=== PATIENT | male | born 1930 | race Two or more races ===

== ENCOUNTER → 2016-10-08 | Outpatient (CLI) | payer MEDICARE, MEDICAID ==
[~2016-10-08] MED LIST: ASPI325T32 PO; BACL10TA PO; FINA5TAB4 PO; GABA300C16 PO; HYDR-906 PO; LOVA20TA PO; MULT1TAB10 PO; OXYC-279 PO; PANT40TA4 PO; PROM6.2514 PO; ROPI0.5T2 PO; TAMS0.4C2 PO; ULT50 PO
== END | disposition home or self-care (01) ==
LOC: HKI 10:08
PROVIDERS: ATTEND Orthopaedic Surgery
DX: Z01.818 Encounter for other preprocedural examination (principal); M25.551 Pain in right hip
CPT/HCPCS: 87081; G0463

== ENCOUNTER 2016-10-14 05:37 | Inpatient (IN) | payer MEDICARE, OTHER ==
--- NOTE | 2016-10-10 07:30 | PREOPHP ---
DATE OF ADMISSION: 10/14/2016 SURGERY TO BE PERFORMED: Right hip replacement. INDICATION: Stress fracture of the right hip and severe pain, not resolving with conservative measu res, pain medications, physical therapy, anti-inflammatories, muscle relaxers, etc. This is an 86-year-old white male who is being brought to the hospital for the purpose of right hip replacement. He has been suffering severe pain in the right hip for the past 6 months and he failed conservative measures. PAST MEDICAL HISTORY: The patient has a history of hyperlipidemia, gastroesophageal reflux disease, colonic polyps, prostatic hyperplasia, osteoarthritis and peripheral neuropathy. SOCIAL HISTORY: Nonsmoker, nondrinker. FAMILY HISTORY: Negative for any hereditary or familial disorders. REVIEW OF SYSTEMS: Patient denies syncope, denies amaurosis, no chest pain, no angina pectoris, no dyspnea, no hemoptysis, no sputum production. No hematochezia or melena. He has frequent urination and some hesitancy due to prostatic hyperplasia. He has osteoarthritic pain in the knees and hips and lumbar spine. PHYSICAL EXAMINATION: GENERAL: Reveals an elderly gentleman appearing younger than his stated age. He is 5 feet 6 inche s in height, he weighs 195 pounds with indoor clothing. VITAL SIGNS: Blood pressure was 150/70, pulse was 65 per minute and regular. Oxygen saturation wa s 96% on room air. HEAD AND NECK: Reveals throat and ears to be clear. No evidence of acute pharyngeal infection or i nflammation. Neck is supple. There was no audible carotid bruit, no lymphadenopathy. CHEST: Reveals chest to be symmetrical. Heart sounds are audible and normal. No murmurs, no rhodes ps, no rubs are noted. LUNGS: Clear to auscultation and percussion at inspiration and expiration bilaterally. ABDOMEN: Soft, somewhat protuberant, but no ascites. No hepatomegaly, no splenomegaly, no masses __ ___ or palpable. GENITOURINARY: The patient had normal male genitalia and there is some inguinal area bilaterally d ermatitis, fungal in nature described as tinea cruris. EXTREMITIES: Revealed no evidence of deep or superficial venous thrombosis. Distal pulses are 3 to 4+ bilaterally. Homans signs are negative. No calf edema or tenderness. EKG done in the office revealed rhythm to be regular, rate of 54 per minute, axis +3, no ST se gment deviation, no T-wave depression. Chest x-ray PA and lateral done in the office reveals evidence of degenerative thoracic spine disea se, but no acute infiltrate in either of the lung rowe. No cardiomegaly. Mediastinal size was no t enlarged. ASSESSMENT: 1. Stress fracture of the right hip. 2. Osteoarthritis. 3. Prostatic hyperplasia. 4. Peripheral neuropathy. 5. Hyperlipidemia, all stable on medical treatment. PLAN: The patient is medically clear to undergo hip replacement under general anesthesia. I will b e available perioperatively for any inquiries. My cellular phone is [phone], my e-mail is [email or web address]. Dictated By: BELLA JAMES/SHANNAN Conf#: [id number] DID#: [id number]
[2016-10-13 09:20] VITALS: Ht 165.1 cm; Wt 87.4 kg
[2016-10-14] VITALS (25 sets, daily range): BP systolic 99–158; BP diastolic 49–82; PULSE 60–74; RESP 7–20
[~2016-10-14] VITALS: Ht 165.1 cm; Wt 87.4 kg
[2016-10-14] MEDS ORDERED: oxyCODONE (CR) 10 MG TAB [oxyCONTIN] X1 DOSE PO ONE (06:00)
[2016-10-14] MEDS ORDERED: PREGABALIN 300 MG PO X1 PO ONE (06:00)
[2016-10-14] MEDS ORDERED: SOD CHLORIDE 0.9% IV ONE (06:00)
[2016-10-14] MEDS ORDERED: CELECOXIB 400 MG PO X1 DOSE PO ONE (06:00)
[2016-10-14] MEDS ORDERED: CEFAZOLIN 2GM/50 ML (PMX) 50 ML X1 BEFORE INCISION IVPB ONE (06:00)
[2016-10-14] MEDS ORDERED: traMADOL 50 MG TAB X 1 DOSE PO ONE (06:00)
[2016-10-14] MEDS ORDERED: TRANEXAMIC ACID IV ONE (06:00)
[2016-10-14] MEDS ORDERED: BACITRACIN 50000 UNITS INJ ONE (06:39)
[2016-10-14] MEDS ORDERED: VANCOMYCIN 1 GM INJ ONE (06:45)
[2016-10-14] MEDS ORDERED: POLYMYXIN B 500000 UNIT INJ ONE (06:45)
[2016-10-14] MEDS ORDERED: SODIUM CL BACTERIOSTATIC 30 ML INJ ONE (06:45)
[2016-10-14] MEDS ORDERED: PROPOFOL 100 ML ONE (06:50)
[2016-10-14] MEDS ORDERED: ONDANSETRON 4 MG INJ ONE (06:51)
[2016-10-14] MEDS ORDERED: METOCLOPRAMIDE 10 MG INJ ONE (06:51)
[2016-10-14] MEDS ORDERED: DEXAMETHASONE 4 MG/ML 1 ML INJ ONE (06:51)
[2016-10-14] MEDS ORDERED: CEFAZOLIN 1 GM INJ ONE (07:00)
[2016-10-14] MEDS ORDERED: ROCURONIUM 50 MG INJ ONE (07:00)
[2016-10-14] MEDS ORDERED: BUPIVACAINE LIPOSOME/PF 266 MG/20 ML VIAL INFIL SCH (07:00)
[2016-10-14] MEDS ORDERED: TRANEXAMIC ACID 870 MG in SOD CHLORIDE 0.9% 100 ML IVPB SCH (07:00)
[2016-10-14] MEDS ORDERED: PAIN COCKTAIL-CEFUROXIME IRR SCH ×7 (07:00)
[2016-10-14] MEDS ORDERED: EXPAREL NOTE (BUPIVICAINE LIPOSOMAL) XX SCH (07:00)
--- NOTE | 2016-10-14 07:14 | HPN ---
Date/Time of Note Date/Time of Note DATE: 10/14/16 TIME: 07:14 Interval H&P Admission Note Pt. seen H&P reviewed: No system changes No changes from H&P by Dr. Shipley on 10/06/16 BELLA REVELES MD Oct 14, 2016 07:14
[2016-10-14] MEDS ORDERED: FINA5TAB4 PO (07:15)
[2016-10-14] MEDS ORDERED: TAMS0.4C2 PO (07:15)
[2016-10-14] MEDS ORDERED: LOVA20TA PO (07:15)
[2016-10-14] MEDS ORDERED: ULT50 PO (07:15)
[2016-10-14] MEDS ORDERED: OXYC-279 PO (07:15)
[2016-10-14] MEDS ORDERED: PROM6.2514 PO (07:15)
[2016-10-14] MEDS ORDERED: MULT1TAB10 PO (07:15)
[2016-10-14] MEDS ORDERED: ROPI0.5T2 PO (07:15)
[2016-10-14] MEDS ORDERED: GABA300C16 PO (07:15)
[2016-10-14] MEDS ORDERED: BACL10TA PO (07:15)
[2016-10-14] MEDS ORDERED: HYDROmorphONE 2 MG/ML SYG ONE (07:54)
[2016-10-14] MEDS ORDERED: METOPROLOL 5 MG INJ ONE (07:54)
[2016-10-14] MEDS ORDERED: hydrALAzine 20 MG INJ ONE (08:37)
[2016-10-14] MEDS ORDERED: ONDANSETRON 4 MG INJ IV PRN ×2 (09:00→10:30)
[2016-10-14] MEDS ORDERED: DIPHENHYDRAMINE 50 MG INJ IV PRN (09:00)
[2016-10-14] MEDS ORDERED: MEPERIDINE 25 MG INJ IV PRN (09:00)
[2016-10-14] MEDS ORDERED: LABETALOL HCL 20MG INJ IV PRN (09:00)
[2016-10-14] MEDS ORDERED: METOCLOPRAMIDE 10 MG INJ IV PRN (09:00)
[2016-10-14] MEDS ORDERED: HYDROmorphONE (0.2 MG/ML) 10ML SYG IV PRN ×3 (09:00)
[2016-10-14] MEDS ORDERED: hydrALAzine 20 MG INJ IV PRN (09:00)
[2016-10-14] MEDS ORDERED: EPHEDrine SULFATE 50 MG/5 ML SYG ONE (09:30)
[2016-10-14] MEDS ORDERED: NEOSTIGMINE 3 MG/3 ML SYRINGE ONE (09:44)
[2016-10-14] MEDS ORDERED: GLYCOPYRROLATE 1 MG INJ ONE (09:44)
[2016-10-14] MEDS ORDERED: HYDROmorphONE 1 MG/ML SYG IV PRN (10:30)
[2016-10-14] MEDS ORDERED: NACL 0.9% 3 ML SYG IV SCH (10:30)
[2016-10-14] MEDS ORDERED: MAGNESIUM HYDROXIDE 30ML CUP PO PRN (10:30)
[2016-10-14] MEDS ORDERED: DIPHENHYDRAMINE 25 MG CAP PO PRN (10:30)
[2016-10-14] MEDS ORDERED: ASPIRIN (EC) 325 MG TAB PO ONE (10:30)
[2016-10-14] MEDS ORDERED: NA PHOSPHATE/BIPHOS 133 ML ENEMA PR PRN (10:30)
[2016-10-14] MEDS ORDERED: BISACODYL 10 MG SUPP PR PRN (10:30)
[2016-10-14] MEDS ORDERED: oxyCODONE 5 MG TAB PO PRN (10:30)
[2016-10-14 10:39] LABS: HEMATOCRIT 36.3 % (42.0-52.0); HEMOGLOBIN 12.5 g/dl (14.0-18.0)
[2016-10-14 10:54] LABS: CREATININE 0.84 mg/dl (0.61-1.24); POTASSIUM 4.7 mmol/L (3.5-5.1)
--- NOTE | 2016-10-14 10:58 | PN ---
Date/Time of Note Date/Time of Note DATE: 10/14/16 TIME: 10:56 Assessment/Plan Lines/Catheters IV Catheter Type (from Nrsg): Peripheral IV Assessment/Plan Assessment/Plan Stable in PACU s/p right anterior NAUN -cont abx -pain meds -ASA/SCDs -OOB with PT -monitor drain -check AM labs -encourage incentive spirometry use -d/c fair in AM XR of the right hip shows good anatomic alignment with no evidence of dislocation Subjective 24 Hr Interval Summary Doing well in PACU. Still drowsy from anesthesia however denies pain. Moving all extremities. Exam/Review of Systems Vital Signs Vitals Vital Signs Date Time Temp Pulse Resp B/P Pulse Ox O2 Delivery O2 Flow Rate FiO2 10/14/16 10:52 68 10 110/60 96 Nasal Cannula 10/14/16 10:22 97.8 Exam Free Text/Dictation Dressing dry Incision clean, dry, and intact without redness or drainage 5/5 Quadriceps, Tibialis Anterior, EHL, Gastroc, Soleus, Peroneals Normal sensation Palpable DT/PT, CR <2 sec No distal edema Results Result Diagram: 10/14/16 1030 10/14/16 1030 OVIDIO FUENTES PA-C Oct 14, 2016 10:58
[2016-10-14 11:00] LABS: CALCIUM 8.9 mg/dl (8.4-10.2)
[2016-10-14] MEDS: CEFAZOLIN 2 GM/50 ML (PMX) 50 ML IVPB SCH ×2 (11:12→18:53)
--- NOTE | 2016-10-14 11:20 | OPPN ---
Date/Time of Note Date/Time of Note DATE: 10/14/16 TIME: 11:18 Operative/Procedure Note Dictation # [id number] Pre-Operative Diagnosis Right Hip OA Post-Operative Diagnosis Same Procedure Right Anterior NAUN Surgeon: BELLA REVELES MD Supervisor Hard Candy: OVIDIO FUENTES PA-C Anesthesiologist: RICK URBINA MD Findings Severe OA Blood Usage/Administration None Implants/Grafts Depuy NAUN Estimated blood loss: 250 - 300 ml's Drains Hemovac x 1 Specimens Femoral Head Complications: None Anesthesia type: spinal BELLA REVELES MD Oct 14, 2016 11:20
--- NOTE | 2016-10-14 11:28 | OPR ---
DATE OF OPERATION: 10/14/2016 PREOPERATIVE DIAGNOSIS: Right hip osteoarthritis. POSTOPERATIVE DIAGNOSIS: Right hip osteoarthritis. OPERATION PERFORMED: Right anterior total hip arthroplasty. SURGEON: Bella Pederson MD MASON LINER: Alfredo PATRICIO COMPONENTS USED: DePuy size 54 mm Gription Gaylord cup, 54/36 neutral AltrX polyethylene liner, 14 Cox[place] Vara Corail stem, 36+1.5 ceramic head. ANESTHESIA: Spinal plus general endotracheal intubation plus periarticular injection. ANESTHESIOLOGIST: Yazmin Marin MD ESTIMATED BLOOD LOSS: 300 mL. INTRAVENOUS FLUIDS: 1700 mL crystalloid. SPECIMENS: Femoral head. DRAINS: Hemovac x1. COMPLICATIONS: None. DISPOSITION: Patient tolerated the procedure well and was taken to the recovery room in [facility]. INDICATIONS: The patient is an 86-year-old gentleman who has had progressively worsening pain in th e right hip with radiographic evidence of severe osteoarthritis. He has failed nonsurgical means of treatment to control his pain including activity modifications, pain medications and ambulatory ass ist devices. Despite these measures, he has had worsening pain and I felt he would benefit from a t otal hip arthroplasty through an anterior approach. I felt the patient would benefit from a total hip arthroplasty through an anterior approach. The risks, benefits, and alternatives of the procedure were explained in detail to the patient. I ex plained the risks of the surgery to include, but not be limited to: bleeding and possible need for b lood transfusion; infection; pain; stiffness; neurovascular injury with possible numbness, weakness, and/or paralysis anywhere from the hip down to the toes; fracture; instability; dislocation; leg le ngth inequality; wear and/or loosening of the prosthesis and possible need for future revision; bloo d clots; pulmonary embolism; and anesthetic complications such as heart attack, stroke, GI bleed, pn eumonia, and/or . Ample time was allowed for the patient to ask questions, all of which were ad dressed and answered. The patient understood the risks involved and wished to proceed. Informed cons ent was signed prior to the procedure. PROCEDURE: The patient's right hip was initialed with a marking pen in the preoperative area to iden tify the correct operative site. The patient was brought to the operating room and transferred from the [facility] to the [facility] where a spinal anesthetic was administered. The patient was th en anesthetized and intubated. A Dior catheter was placed. Both feet were placed into well padded b oots which were then placed into the leg holders of the traction booms. A timeout was performed to c onfirm that the right side was the correct operative site. The patient was given 2 g of intravenous Ancef within one hour prior to the procedure. The operative hip was prepped and draped in the usual sterile fashion. A 10 cm oblique incision was made over the anterior aspect of the hip and carried down through subcu taneous tissue and fat with sharp dissection. The tensor fascia isidro was incised along the length of the wound. The tensor fascia muscle was retracted laterally and the sartorius medially. The anterio r circumflex vessels were identified and tied off with 2-0 silk suture and coagulated with the EVOFEMu e [employer] analyst. The rectus femoris was elevated off the anterior capsule and an anterior capsulec kristi performed. A femoral neck osteotomy was made and the head removed from the acetabulum. The acet abulum was denuded of cartilage circumferentially, as was the femoral head. Retractors were placed a round the acetabulum. The remnants of the labrum and ligamentum teres were excised. I reamed the anabel tabulum to the medial wall and then went into an anatomic position and increased the reamer size in 2 mm increments until I got a good bite and was down to bleeding subchondral bone. The Gaylord cup was opened and impacted into the acetabulum and sat flush circumferentially, gettin g a good bite. C-arm imaging showed it had about 40 to 45 degrees of abduction and 20 degrees of ant eversion. The real liner was opened and impacted into the acetabulum and sat flush circumferentiall y. Attention was turned towards the femur. The operative leg was carefully lowered to the floor with the leg adducted. The foot was then vest backer ally rotated to approximately 110 degrees. A posteromedial release was performed to optimize exposur e. The femoral hook was placed underneath the proximal femur and the hydraulic lift was then used to elevate the femur up out of the wound. The [employer] cutter osteotome was used to remove the remaining overhanging greater trochanter. The femur was then broached, going up in one size increments until it sat flush with the neck cut and a stable fit was achieved. The trial neck and head were assembled and reduced into the acetabulum. Fluoroscopic imaging showed the components to be in good position and the leg lengths and offsets to be equal. At this point, the trial was dislocated and the trial broach removed. The canal was irrigated and dr saini. The real stem was opened and impacted into the femur. The trunnion was irrigated and dried, and the real femoral head was impacted onto the trunnion, and reduced into the acetabulum. The soft tissues were infiltrated with a mixture of 150 mg of 0.5% Bupivacaine, 8 mg of Duramorph, 3 00 mcg of epinephrine, 30 mg of Toradol, 100 mcg of clonidine, 750 mg of cefuroxime and 86 mL of nor mal saline, followed by an injection of 266 mg of liposomal Bupivacaine. At this point the hip was i rrigated with a mixture of Betadine/saline and then antibiotic saline with pulsatile lavage. A Hemov ac drain was placed in the deep portion of the wound and brought out the anterolateral thigh. There was good hemostasis. The tensor fascia isidro was repaired with a running #1 Vicryl. The deep fat laye r was irrigated and closed with 2-0 Stratafix and the subcutaneous layer closed with 3-0 Stratafix a nd the skin was sealed with Prineo Dermabond. The drain was secured with 3-0 nylon. The sponge and needle counts were correct at the end of the case. The wound was covered with an occl usive dressing. The patient was awakened, extubated, and taken to the recovery room in stable condit ion. Dictated By: BELLA JAMES/SHANNAN Conf#: [id number] DID#: [id number]
--- NOTE | 2016-10-14 11:47 | RADRPT ---
PROCEDURE: XR Hip. CLINICAL INDICATION: Right hip replacement. TECHNIQUE: Right hip x-rays, 12 intraoperative fluoroscopic images were obtained. Reported fluoro scopy time: 0.7 minutes. COMPARISON: None. FINDINGS: Fluoroscopic assistance provided in surgery for right hip arthroplasty. IMPRESSION: Fluoroscopic assistance provided in surgery for right hip arthroplasty. RPTAT: HLST .Olimpia Barron MD, Date Time Electronically viewed and signed by .Olimpia Barron MD, on 10/14/2016 11:47 .T/
--- NOTE | 2016-10-14 11:50 | RADRPT ---
PROCEDURE: XR Pelvis. CLINICAL INDICATION: Pain. TECHNIQUE: Pelvic x-ray, single AP view. COMPARISON: 10/13/2016. FINDINGS: Bony mineralization appears decreased. Right hip arthroplasty hardware is now in place. The hip sidney ints are intact. Severe osteoarthritis of the left hip is present and unchanged. A surgical drain is in place within the soft tissues adjacent to the right hip. Postoperative air is also present. IMPRESSION: Surgical changes compatible with right hip arthroplasty. Severe left hip arthritis. RPTAT: HLST .Olimpia Barron MD, MD Date Time Electronically viewed and signed by .Olimpia Barron MD, MD on 10/14/2016 11:50 .T/
--- NOTE | 2016-10-14 11:59 | RADRPT ---
PROCEDURE: XR Hip. CLINICAL INDICATION: Right hip arthroplasty. TECHNIQUE: Right hip x-rays, single frontal view. COMPARISON: 10/13/2016. FINDINGS: Right hip arthroplasty hardware is now in place. Hip joint is intact. A surgical drainage catheter is seen within the immediate surrounding soft tissues. IMPRESSION: Surgical changes compatible with right hip arthroplasty. RPTAT: HLST .Olimpia Barron MD, Date Time Electronically viewed and signed by .Olimpia Barron MD, on 10/14/2016 11:59 .T/
[2016-10-14] MEDS: LACTATED RINGER'S 1,000 ML IV SCH ×5 (12:00→23:40)
[2016-10-14] MEDS: traMADol 50 MG TAB PO SCH ×4 (12:00→23:39)
[2016-10-14] MEDS: ACETAMINOPHEN 1000MG/100ML IV 100 ML IVPB SCH ×3 (12:49→23:38)
--- NOTE | 2016-10-14 12:58 | CONS ---
DATE OF ADMISSION: 10/14/2016 DATE OF CONSULTATION: 10/14/[address] Reveles: Thank you very much for allowing me to evaluate this 86-year-old male who just underwent right hip r eplacement. HISTORICAL EVENTS: As you well know, this patient has had progressive disabling pain involving his right hip, and for this, underwent surgical intervention earlier today. In recovery room, postopera tively, he is comfortable without cough, wheezing, shortness of breath, nausea, vomiting, abdominal or chest pain. PAST MEDICAL HISTORY: Includes: 1. Benign prostatic hypertrophy. 2. Hyperlipidemia. 3. Hypertension. 4. Gastroesophageal reflux. 5. History of malignant neoplasm of the colon. 6. Peripheral neuropathy. SOCIAL HISTORY: . ALLERGIES: NONE. MEDICATIONS: 1. Aricept 10 mg per day. 2. Baclofen 10 mg t.i.d. 3. Flomax 0.4 at night. 4. Gabapentin 300 mg t.i.d. 5. Lovastatin 40 mg per day. 6. Meloxicam 15 mg per day. 7. Myrbetriq 25 mg per day. 8. Omeprazole 40 mg per day. 9. ProAir as needed. 10. Proscar 5 mg per day. 11. Requip 0.5 nightly. PHYSICAL EXAMINATION: GENERAL: Reveals a somnolent male, no acute distress. VITAL SIGNS: BP 126/80, pulse 70, respirations are 20, he was afebrile. EYES: Extraocular muscles were full. NOSE, MOUTH, AND THROAT: Normal. NECK: Supple. There was no jugular venous distention, thyroid enlargement, or adenopathy. LUNGS: Clear. HEART: Rhythm regular. No murmur. No third or fourth sound. ABDOMEN: Nontender. Liver and spleen were not palpable. No masses or tenderness were noted. EXTREMITIES: No edema. NEUROLOGIC: No lateralizing motor weakness. IMPRESSION: 1. Stable, postoperative right hip replacement. 2. History of gastroesophageal reflux disease. Will continue PPI. 3. Benign prostatic hypertrophy. We will be alert to bladder outlet obstruction. 4. We will evaluate daily for signs and symptoms of thromboembolic disease despite appropriate deep vein thrombosis prophylaxis. 4. Hyperlipidemia. Statin to be continued. Dictated By: KEON GALVEZ/SHANNAN Conf#: [id number] DID#: [id number] CC: BELLA REVELES MD;*End*
[2016-10-14] MEDS: PANTOPRAZOLE (EC) 40 MG TAB PO SCH (17:52)
[2016-10-14] MEDS: ATORVASTATIN 10 MG TAB PO SCH (20:41)
[2016-10-14] MEDS: DOCUSATE SODIUM 100 MG CAP PO SCH (20:41)
[2016-10-14] MEDS: PREGABALIN 25 MG CAP PO SCH (20:41)
[2016-10-14] MEDS: ROPINIROLE 0.25 MG TAB PO SCH ×2 (20:45→23:39)
[2016-10-15] MEDS: LACTATED RINGER'S 1,000 ML IV SCH ×5 (00:29→22:00)
[2016-10-15] MEDS: CEFAZOLIN 2 GM/50 ML (PMX) 50 ML IVPB SCH (03:32)
[2016-10-15] MEDS: PANTOPRAZOLE (EC) 40 MG TAB PO SCH ×2 (05:10→17:36)
[2016-10-15] MEDS: ACETAMINOPHEN 1000MG/100ML IV 100 ML IVPB SCH (05:11)
[2016-10-15] MEDS: traMADol 50 MG TAB PO SCH ×4 (05:11→23:36)
[2016-10-15 05:38] VITALS: BP 110/58; PULSE 66; RESP 18
[2016-10-15 06:41] LABS: HEMATOCRIT 31.4 % (42.0-52.0); HEMOGLOBIN 10.6 g/dl (14.0-18.0)
[2016-10-15 07:07] LABS: ADD UMIC NO; URINE BILIRUBIN (Dip) NEGATIVE (NEGATIVE); URINE BLOOD (Dip) NEGATIVE (NEGATIVE); URINE COLOR LT. YELLOW (YELLOW); URINE GLUCOSE (Dip) NEGATIVE (NEGATIVE); URINE KETONES (Dip) NEGATIVE (NEGATIVE); URINE LEUKOCYTE ESTERASE (Dip) NEGATIVE (NEGATIVE); URINE NITRITE (Dip) NEGATIVE (NEGATIVE); URINE TOTAL PROTEIN (Dip) NEGATIVE (NEGATIVE); URINE UROBILINOGEN (Dip) 0.2 E.U./dL (0.1-1.0)
[2016-10-15 07:13] LABS: POTASSIUM 4.3 mmol/L (3.5-5.1)
--- NOTE | 2016-10-15 07:14 | PDOCDIS ---
Discharge Instructions DIAGNOSIS Discharge Diagnosis: s/p right anterior NAUN CONDITION Patient Condition: Good HOME CARE INSTRUCTIONS: Diet Instructions: RegularSpecial Diet: low sodium diet ACTIVITY: Activity Restrictions: Slowly Increase Activity Rest between Activity Avoid heavy lifting Do not operate Machinery Do not operate Power Tool Avoid Heavy Housework Keep Limb Elevated Bathing Restrictions: Shower FOLLOW UP/APPOINTMENTS Appointments follow up with Dr. Pederson in the office on 10/25/16 OTHER ORDERS: Other Orders: S/P Anterior NAUN Physical Therapy: Three times per week at home x 2 weeks Daily in Rehab/SNF (if applicable) WB STATUS: WBAT Strengthening exercises for both upper and un-operated lower extremities. 1. Gait training with front wheeled walker 2. Wide base gait, no pivot turns. 3. Abductor strengthening. 4. Quadriceps and hamstring strengthening. 5. May switch to cane in contra lateral hand 6 weeks after surgery. 6. Physical Therapy can open case if nursing is not available. 7. Ice Packs while at rest to surgical wound for 20 minutes, 3 times/day. 8. Patient requires mobile SCDs to reduce risk of developing DVT following NAUN. Patient will use the mobile SCDs for 30 days postoperatively. Hip Precautions: No posterior hip precautions. Bathing assistance by home health aide twice weekly if Medicare patient. Occupational Therapy: Evaluation for assistive devices and ADL training. Wound Care: Keep incision dry & covered with Tegaderm until first visit with Dr. Pederson Anticoagulation Orders: Enteric Coated Aspirin 325 mg po bid x 6 weeks from date of surgery Follow-up:Call for an appointment with Dr. Pederson in 1 week after discharged from hospital at DME Orders: ASHLEY, 3-in-1 Commode, Mobile SCDs OVIDIO FUENTES PA-C Oct 15, 2016 07:14
[2016-10-15 07:15] LABS: CREATININE 0.71 mg/dl (0.61-1.24)
[2016-10-15 07:16] LABS: CALCIUM 8.7 mg/dl (8.4-10.2)
[2016-10-15] MEDS ORDERED: HYDR-906 PO (07:17)
[2016-10-15] MEDS ORDERED: ASPI325T32 PO (07:17)
[2016-10-15] MEDS ORDERED: PANT40TA4 PO (07:17)
[2016-10-15 07:30] VITALS: BP 119/58; RESP 16
[2016-10-15] MEDS: DOCUSATE SODIUM 100 MG CAP PO SCH ×2 (08:59→21:34)
[2016-10-15] MEDS: ASPIRIN (EC) 325 MG TAB PO SCH ×2 (09:00→21:32)
[2016-10-15] MEDS ORDERED: TAMSULOSIN (SR) 0.4 MG CAP PO SCH (09:00)
[2016-10-15] MEDS ORDERED: FINASTERIDE 5 MG TAB PO SCH (09:00)
[2016-10-15] MEDS: CELECOXIB 200 MG CAP PO SCH (09:00)
[2016-10-15] MEDS: PREGABALIN 25 MG CAP PO SCH ×2 (09:00→21:31)
--- NOTE | 2016-10-15 09:03 | CONS ---
Date/Time of Note Date/Time of Note DATE: 10/15/16 TIME: 09:01 Assessment/Plan Assessment/Plan Additional Assessment/Plan 1. Stable, postoperative right hip replacement. 2. History of gastroesophageal reflux disease. Will continue PPI. 3. Benign prostatic hypertrophy, fair dcd and will observe for significant post void residuals 4. Hyperlipidemia. Statin to be continued. Consultation Date/Type/Reason Admit Date/Time Oct 14, 2016 at 05:37 Initial Consult Date Detailed Summary Respiratory: No shortness of breath Cardiovascular: No chest pain, No lightheadedness Gastrointestinal: no complaints Genitourinary: other (fair jsut removed) Musculoskeletal: bone/joint pain (mild right hip pain) Exam/Review of Systems Vital Signs Vitals Vital Signs Date Time Temp Pulse Resp B/P Pulse Ox O2 Delivery O2 Flow Rate FiO2 10/15/16 07:30 97.8 55 16 119/58 100 10/15/16 05:38 Nasal Cannula 2.0 Intake and Output 10/14/16 10/14/16 10/15/16 15:00 23:00 07:00 Intake Total 1900 ml 1255 ml 1950 ml Output Total 535 ml 750 ml 1620 ml Balance 1365 ml 505 ml 330 ml Exam Neck: No jvd Respiratory: clear to auscultation Cardiovascular: regular rate and rhythm Gastrointestinal: soft Extremities: No edema (and no calf tend) Results Result Diagram: 10/15/16 0505 10/15/16 0420 Results 24 hrs Laboratory Tests Test 10/14/16 10:30 10/15/16 04:00 10/15/16 04:20 10/15/16 05:05 Anion Gap 14 13 Blood Urea Nitrogen 12 12 Calcium Level 8.9 8.7 Carbon Dioxide Level 28 31 Chloride Level 106 103 Creatinine 0.84 0.71 Glucose Level 144 95 # Hematocrit 36.3 L 31.4 L Hemoglobin 12.5 L 10.6 L Potassium Level 4.7 4.3 Sodium Level 143 143 Urine Bilirubin NEGATIVE Urine Clarity CLEAR Urine Color LT. YELLOW Urine Glucose NEGATIVE Urine Hemoglobin NEGATIVE Urine Ketones NEGATIVE Urine Leukocyte Esterase NEGATIVE Urine Nitrite NEGATIVE Urine Specific [place] 1.020 Urine Total Protein NEGATIVE Urine Urobilinogen 0.2 E.U./dL Urine pH 5.5 Medications Medications Current Medications Lactated Ringer's (Lr) 1,000 ml @ 100 mls/hr Q10H IV Last administered on 10/14 23:40; Admin Dose 100 MLS/HR; Start 10/14/16 at 06:00 Bupivacaine Liposome (Exparel 266 Mg/ 20 ml Vial) 266 mg INTRA-OP INFIL Last administered on 10/14/16 09:28; Admin Dose 266 MG; Start 10/14/16 at 07:00; Stop 10/18/16 at 06:59 Miscellaneous Information 1 ea NOTE XX ; Start 10/14/16 at 07:00; Stop 10/17/16 at 06:59 Finasteride (Proscar) 5 mg DAILY PO ; Start 10/15/16 at 09:00 Ropinirole HCl (Requip) 0.5 mg HS PO Last administered on 10/14/16 23:39; Admin Dose 0.5 MG; Start 10/14/16 at 21:00 Tamsulosin HCl 0.4 mg 0.4 mg DAILY PO ; Start 10/15/16 at 09:00 Lactated Ringer's (Lr) 1,000 ml @ 125 mls/hr Q8H IV Last administered on 16:55; Admin Dose 125 MLS/HR; Start 10/14/16 at 10:11 Celecoxib 200 mg 200 mg DAILY PO Last administered on 10/15/16 09:00; Admin Dose 200 MG; Start 10/15/16 at 09:00 Acetaminophen (Ofirmev 1000mg/ 100ml Iv) 100 ml @ 400 mls/hr Q6 IVPB Last administered on 10/15/16 05:11; Admin Dose 400 MLS/HR; Start 10/14/16 at 12:00 ; Stop 10/15/16 at 11:59 Tramadol HCl (Ultram) 50 mg Q6 PO Last administered on 10/15/16 05:11; Admin Dose 50 MG; Start 10/14/16 at 12:00; Stop 10/17/16 at 11:59 Oxycodone HCl (Roxicodone) 5 mg Q4H PRN PO PAIN LEVEL 1-3; Start 10/14/16 at 10 :30 Oxycodone HCl (Roxicodone) 10 mg Q4H PRN PO PAIN LEVEL 4-7; Start 10/14/16 at 10:30 Hydromorphone HCl (Dilaudid) 1 mg Q3H PRN IV PAIN LEVEL 8-10; Start 10/14/16 at 10:30 Ondansetron HCl (Zofran Inj) 4 mg Q6H PRN IV NAUSEA AND/OR VOMITING; Start 09/18 at 10:30 Bisacodyl (Dulcolax Supp) 10 mg Q12H PRN RI CONSTIPATION; Start 10/14/16 at 10: 30 Magnesium Hydroxide (Milk Of Mag) 30 ml BID PRN PO CONSTIPATION; Start at 10:30 Sodium Biphosphate/ Sodium Phosphate (Fleet Enema) 133 ml DAILY PRN RI CONSTIPATION; Start 10/14/16 at 10:30 Docusate Sodium (Colace) 100 mg BID PO Last administered on 10/15/16 08:59; Admin Dose 100 MG; Start 10/14/16 at 21:00 Diphenhydramine HCl (Benadryl) 25 mg Q6H PRN PO PRURITUS; Start 10/14/16 at 10: 30 Aspirin (Ecotrin) 325 mg BID PO Last administered on 10/15/16 09:00; Admin Dose 325 MG; Start 10/15/16 at 09:00 Pregabalin (Lyrica) 50 mg BID PO Last administered on 10/15/16 09:00; Admin Dose 50 MG; Start 10/14/16 at 21:00 Pantoprazole (Protonix Tab) 40 mg BID@06,18 PO Last administered on 10/15/16 05:10; Admin Dose 40 MG; Start 10/14/16 at 18:00 Atorvastatin Calcium (Lipitor) 10 mg HS PO Last administered on 10/14/16 20:41 ; Admin Dose 10 MG; Start 10/14/16 at 21:00 KEON WOLF MD Oct 15, 2016 09:03
--- NOTE | 2016-10-15 09:05 | PN ---
Date/Time of Note Date/Time of Note DATE: 10/15/16 TIME: 09:03 Assessment/Plan Lines/Catheters IV Catheter Type (from Nrsg): Peripheral IV Dior in Place (from Nrsg): Yes Assessment/Plan Assessment/Plan Stable POD #1 s/p right NAUN -d/c abx -pain meds -ASA/SCDs -drain removed -OOB with PT -encourage incentive spirometry -d/c planning. Would like to go to [facility] Subjective 24 Hr Interval Summary Doing well. No acute overnight events. Minimal Pain. Did not start PT yesterday. VSS, afebrile. Would like to go to rehab versus home Exam/Review of Systems Vital Signs Vitals Vital Signs Date Time Temp Pulse Resp B/P Pulse Ox O2 Delivery O2 Flow Rate FiO2 10/15/16 07:30 97.8 55 16 119/58 100 10/15/16 05:38 Nasal Cannula 2.0 Intake and Output 10/14/16 10/14/16 10/15/16 15:00 23:00 07:00 Intake Total 1900 ml 1255 ml 1950 ml Output Total 535 ml 750 ml 1620 ml Balance 1365 ml 505 ml 330 ml Exam Free Text/Dictation Hemovac: 205cc Dressing dry Incision clean, dry, and intact without redness or drainage 5/5 Quadriceps, Tibialis Anterior, EHL, Gastroc, Soleus, Peroneals Normal sensation Palpable DT/PT, CR <2 sec No distal edema Results Result Diagram: 10/15/16 0505 10/15/16 0420 OVIDIO FUENTES PA-C Oct 15, 2016 09:04
--- NOTE | 2016-10-15 12:54 | PN ---
Date/Time of Note Date/Time of Note DATE: 10/15/16 TIME: 12:49 Assessment/Plan VTE Prophylaxis VTE Prophylaxis Intervention: ambulation, other Lines/Catheters IV [facility]from [facility] Saline Lock Urinary Cath still in place: Yes Subjective 24 Hr Interval Summary Free Text/Dictation Anesthesia Note: A 86 y male S/P right hip replacement POD# 1 under GA and spinal. he is doing well, well controlled pIN, NO HEADACHE AND n/v. BACK IS CLEAN. Exam/Review of Systems Vital Signs Vitals Vital Signs Date Time Temp Pulse Resp B/P Pulse Ox O2 Delivery O2 Flow Rate FiO2 10/15/16 07:30 97.8 55 16 119/58 100 10/15/16 05:38 Nasal Cannula 2.0 Intake and Output 10/14/16 10/14/16 10/15/16 15:00 23:00 07:00 Intake Total 1900 ml 1255 ml 1950 ml Output Total 535 ml 750 ml 1620 ml Balance 1365 ml 505 ml 330 ml Results Result Diagram: 10/15/16 0505 10/15/16 0420 Results 24 hrs Laboratory Tests Test 10/15/16 04:00 10/15/16 04:20 10/15/16 05:05 Urine Bilirubin NEGATIVE Urine Clarity CLEAR Urine Color LT. YELLOW Urine Glucose NEGATIVE Urine Hemoglobin NEGATIVE Urine Ketones NEGATIVE Urine Leukocyte Esterase NEGATIVE Urine Nitrite NEGATIVE Urine Specific Nixon 1.020 Urine Total Protein NEGATIVE Urine Urobilinogen 0.2 E.U./dL Urine pH 5.5 Anion Gap 13 Blood Urea Nitrogen 12 Calcium Level 8.7 Carbon Dioxide Level 31 Chloride Level 103 Creatinine 0.71 Glucose Level 95 # Potassium Level 4.3 Sodium Level 143 Hematocrit 31.4 L Hemoglobin 10.6 L Medications Medications Current Medications Lactated Ringer's (Lr) 1,000 ml @ 100 mls/hr Q10H IV Last administered on 10/14 23:40; Admin Dose 100 MLS/HR; Start 10/14/16 at 06:00 Bupivacaine Liposome (Exparel 266 Mg/ 20 ml Vial) 266 mg INTRA-OP INFIL Last administered on 10/14/16 09:28; Admin Dose 266 MG; Start 10/14/16 at 07:00; Stop 10/18/16 at 06:59 Miscellaneous Information 1 ea NOTE XX ; Start 10/14/16 at 07:00; Stop 10/17/16 at 06:59 Ropinirole HCl 0.5 mg 0.5 mg HS PO Last administered on 10/14/16 23:39; Admin Dose 0.5 MG; Start 10/14/16 at 21:00 Lactated Ringer's (Lr) 1,000 ml @ 125 mls/hr Q8H IV Last administered on 16:55; Admin Dose 125 MLS/HR; Start 10/14/16 at 10:11 Celecoxib (Celebrex) 200 mg DAILY PO Last administered on 10/15/16 09:00; Admin Dose 200 MG; Start 10/15/16 at 09:00 Tramadol HCl (Ultram) 50 mg Q6 PO Last administered on 10/15/16 05:11; Admin Dose 50 MG; Start 10/14/16 at 12:00; Stop 10/17/16 at 11:59 Oxycodone HCl (Roxicodone) 5 mg Q4H PRN PO PAIN LEVEL 1-3; Start 10/14/16 at 10 :30 Oxycodone HCl (Roxicodone) 10 mg Q4H PRN PO PAIN LEVEL 4-7; Start 10/14/16 at 10:30 Hydromorphone HCl (Dilaudid) 1 mg Q3H PRN IV PAIN LEVEL 8-10; Start 10/14/16 at 10:30 Ondansetron HCl (Zofran Inj) 4 mg Q6H PRN IV NAUSEA AND/OR VOMITING; Start 09/18 at 10:30 Bisacodyl (Dulcolax Supp) 10 mg Q12H PRN [place] CONSTIPATION; Start 10/14/16 at 10: 30 Magnesium Hydroxide (Milk Of Mag) 30 ml BID PRN PO CONSTIPATION; Start at 10:30 Sodium Biphosphate/ Sodium Phosphate (Fleet Enema) 133 ml DAILY PRN [place] CONSTIPATION; Start 10/14/16 at 10:30 Docusate Sodium (Colace) 100 mg BID PO Last administered on 10/15/16 08:59; Admin Dose 100 MG; Start 10/14/16 at 21:00 Diphenhydramine HCl (Benadryl) 25 mg Q6H PRN PO PRURITUS; Start 10/14/16 at 10: 30 Aspirin (Ecotrin) 325 mg BID PO Last administered on 10/15/16 09:00; Admin Dose 325 MG; Start 10/15/16 at 09:00 Pregabalin (Lyrica) 50 mg BID PO Last administered on 10/15/16 09:00; Admin Dose 50 MG; Start 10/14/16 at 21:00 Pantoprazole (Protonix Tab) 40 mg BID@,18 PO Last administered on 10/15/16 05:10; Admin Dose 40 MG; Start 10/14/16 at 18:00 Atorvastatin Calcium (Lipitor) 10 mg HS PO Last administered on 10/14/16 20:41 ; Admin Dose 10 MG; Start 10/14/16 at 21:00 Finasteride (Proscar) 5 mg HS PO ; Start 10/15/16 at 21:00 Tamsulosin HCl (Flomax) 0.4 mg HS PO ; Start 10/15/16 at 21:00 RICK URBINA MD Oct 15, 2016 12:54
[2016-10-15 19:58] VITALS: BP 150/65; RESP 22
[2016-10-15] MEDS: oxyCODONE 5 MG TAB PO PRN (20:47)
[2016-10-15] MEDS: TAMSULOSIN (SR) 0.4 MG CAP PO SCH (21:00)
[2016-10-15] MEDS: FINASTERIDE 5 MG TAB PO SCH (21:00)
[2016-10-15] MEDS: ROPINIROLE 0.25 MG TAB PO SCH (21:32)
[2016-10-15] MEDS: ATORVASTATIN 10 MG TAB PO SCH (21:32)
[2016-10-16] MEDS: LACTATED RINGER'S 1,000 ML IV SCH ×3 (02:11→10:11)
[2016-10-16 05:19] LABS: HEMOGLOBIN 11.2 g/dl (14.0-18.0)
[2016-10-16 05:50] LABS: POTASSIUM 4.5 mmol/L (3.5-5.1)
[2016-10-16 05:53] LABS: CREATININE 0.77 mg/dl (0.61-1.24)
[2016-10-16 05:54] LABS: CALCIUM 8.8 mg/dl (8.4-10.2)
[2016-10-16] MEDS: PANTOPRAZOLE (EC) 40 MG TAB PO SCH ×2 (06:09→18:27)
[2016-10-16] MEDS: traMADol 50 MG TAB PO SCH ×4 (06:09→23:34)
[2016-10-16 07:45] VITALS: BP 144/71; RESP 18
[2016-10-16] MEDS: ASPIRIN (EC) 325 MG TAB PO SCH ×2 (08:52→21:22)
[2016-10-16] MEDS: CELECOXIB 200 MG CAP PO SCH (08:52)
[2016-10-16] MEDS: PREGABALIN 25 MG CAP PO SCH ×2 (08:52→21:22)
[2016-10-16] MEDS: DOCUSATE SODIUM 100 MG CAP PO SCH ×2 (08:52→21:22)
[2016-10-16] MEDS: oxyCODONE 5 MG TAB PO PRN (10:16)
--- NOTE | 2016-10-16 11:08 | CONS ---
Date/Time of Note Date/Time of Note DATE: 10/16/16 TIME: 11:06 Assessment/Plan Assessment/Plan Additional Assessment/Plan 1. Stable, postoperative right hip replacement. 2. History of gastroesophageal reflux disease, asx 3. Benign prostatic hypertrophy,voiding well, will again check post void residual 4. Hyperlipidemia. Statin to be continued. 5. Can dc if ok with pt and ortho Consultation Date/Type/Reason Admit Date/Time Oct 14, 2016 at 05:37 Detailed Summary Respiratory: No cough, No shortness of breath Cardiovascular: No chest pain Gastrointestinal: no complaints Genitourinary: no complaints Musculoskeletal: bone/joint pain (inc right hip pain) Exam/Review of Systems Vital Signs Vitals Vital Signs Date Time Temp Pulse Resp B/P Pulse Ox O2 Delivery O2 Flow Rate FiO2 10/16/16 10:01 Nasal Cannula 2.0 10/16/16 07:45 98.4 55 18 144/71 93 Intake and Output 10/15/16 10/15/16 10/16/16 15:00 23:00 07:00 Intake Total 1000 ml 1100 ml Output Total 275 ml 1360 ml Balance 725 ml -260 ml Exam Neck: No jvd Respiratory: clear to auscultation Cardiovascular: regular rate and rhythm Gastrointestinal: soft Extremities: No edema (and no calf tend bilat) Results Result Diagram: 10/16/165 10/16/16 043 Results 24 hrs Laboratory Tests Test 10/16/16 04:35 Anion Gap 13 Blood Urea Nitrogen 13 Calcium Level 8.8 Carbon Dioxide Level 35 H Chloride Level 96 L Creatinine 0.77 Glucose Level 118 Hematocrit 33.0 L Hemoglobin 11.2 L Potassium Level 4.5 Sodium Level 139 Medications Medications Current Medications Lactated Ringer's (Lr) 1,000 ml @ 100 mls/hr Q10H IV Last administered on 10/14 23:40; Admin Dose 100 MLS/HR; Start 10/14/16 at 06:00 Bupivacaine Liposome (Exparel 266 Mg/ 20 ml Vial) 266 mg INTRA-OP INFIL Last administered on 10/14/16 09:28; Admin Dose 266 MG; Start 10/14/16 at 07:00; Stop 10/18/16 at 06:59 Miscellaneous Information 1 ea NOTE XX ; Start 10/14/16 at 07:00; Stop 10/17/16 at 06:59 Ropinirole HCl 0.5 mg 0.5 mg HS PO Last administered on 10/15/16 21:32; Admin Dose 0.5 MG; Start 10/14/16 at 21:00 Lactated Ringer's (Lr) 1,000 ml @ 125 mls/hr Q8H IV Last administered on 16:55; Admin Dose 125 MLS/HR; Start 10/14/16 at 10:11 Celecoxib (Celebrex) 200 mg DAILY PO Last administered on 10/16/16 08:52; Admin Dose 200 MG; Start 10/15/16 at 09:00 Tramadol HCl (Ultram) 50 mg Q6 PO Last administered on 10/16/16 06:09; Admin Dose 50 MG; Start 10/14/16 at 12:00; Stop 10/17/16 at 11:59 Oxycodone HCl (Roxicodone) 5 mg Q4H PRN PO PAIN LEVEL 1-3; Start 10/14/16 at 10 :30 Oxycodone HCl (Roxicodone) 10 mg Q4H PRN PO PAIN LEVEL 4-7 Last administered on 10/16/16 10:16; Admin Dose 10 MG; Start 10/14/16 at 10:30 Hydromorphone HCl (Dilaudid) 1 mg Q3H PRN IV PAIN LEVEL 8-10 Last administered on 10/15/16 21:34; Admin Dose 1 MG; Start 10/14/16 at 10:30 Ondansetron HCl (Zofran Inj) 4 mg Q6H PRN IV NAUSEA AND/OR VOMITING; Start 09/18 at 10:30 Bisacodyl (Dulcolax Supp) 10 mg Q12H PRN [place] CONSTIPATION; Start 10/14/16 at 10: 30 Magnesium Hydroxide (Milk Of Mag) 30 ml BID PRN PO CONSTIPATION; Start at 10:30 Sodium Biphosphate/ Sodium Phosphate (Fleet Enema) 133 ml DAILY PRN [place] CONSTIPATION; Start 10/14/16 at 10:30 Docusate Sodium (Colace) 100 mg BID PO Last administered on 10/16/16 08:52; Admin Dose 100 MG; Start 10/14/16 at 21:00 Diphenhydramine HCl (Benadryl) 25 mg Q6H PRN PO PRURITUS; Start 10/14/16 at 10: 30 Aspirin (Ecotrin) 325 mg BID PO Last administered on 10/16/16 08:52; Admin Dose 325 MG; Start 10/15/16 at 09:00 Pregabalin (Lyrica) 50 mg BID PO Last administered on 10/16/16 08:52; Admin Dose 50 MG; Start 10/14/16 at 21:00 Pantoprazole (Protonix Tab) 40 mg BID@18 PO Last administered on 10/16/16 06:09; Admin Dose 40 MG; Start 10/14/16 at 18:00 Atorvastatin Calcium (Lipitor) 10 mg HS PO Last administered on 10/15/16 21:32 ; Admin Dose 10 MG; Start 10/14/16 at 21:00 Finasteride (Proscar) 5 mg HS PO ; Start 10/15/16 at 21:00 Tamsulosin HCl (Flomax) 0.4 mg HS PO ; Start 10/15/16 at 21:00 KEON WOLF MD Oct 16, 2016 11:08
--- NOTE | 2016-10-16 11:35 | PN ---
Date/Time of Note Date/Time of Note DATE: 10/16/16 TIME: 11:32 Assessment/Plan Lines/Catheters IV Catheter Type (from Nrsg): Saline Lock Dior in Place (from Nrsg): Yes Assessment/Plan Assessment/Plan POD # 2. Stable. -D/C Oxycodone. Start [place] (5/325) po bid -If better pain control, d/c to [facility] tomorrow -OOB with PT -E.C. ASA 325 mg po bid -Bilateral LE SCDs -F/u with me on 10/25/16 Subjective 24 Hr Interval Summary Having more pain today. Oxycodone not helping much. Exam/Review of Systems Vital Signs Vitals Vital Signs Date Time Temp Pulse Resp B/P Pulse Ox O2 Delivery O2 Flow Rate FiO2 10/16/16 10:01 Nasal Cannula 2.0 10/16/16 07:45 98.4 55 18 144/71 93 Intake and Output 10/15/16 10/15/16 10/16/16 15:00 23:00 07:00 Intake Total 1000 ml 1100 ml Output Total 275 ml 1360 ml Balance 725 ml -260 ml Exam Free Text/Dictation Incision clean, dry, and intact without redness or drainage Thigh soft 5/5 Quadriceps, Tibialis Anterior, EHL, Gastroc Soleus, Peroneals Normal sensation Palpable DP/PT, CR < 2 Sec No distal edema Results Result Diagram: 10/16/165 10/16/16434 BELLA REVELES MD Oct 16, 2016 11:35
[2016-10-16] MEDS ORDERED: HYDROCODONE/APAP (5/325) TAB PO PRN (12:00)
[2016-10-16] MEDS: HYDROCODONE/APAP (5/325) TAB PO PRN ×2 (12:52→18:34)
[2016-10-16 13:00] VITALS: BP 114/78; PULSE 64; RESP 18
[2016-10-16 19:20] VITALS: BP 131/61; RESP 18
[2016-10-16] MEDS: ROPINIROLE 0.25 MG TAB PO SCH (21:22)
[2016-10-16] MEDS: ATORVASTATIN 10 MG TAB PO SCH (21:22)
[2016-10-16] MEDS: TAMSULOSIN (SR) 0.4 MG CAP PO SCH (21:23)
[2016-10-16] MEDS: FINASTERIDE 5 MG TAB PO SCH (21:23)
[2016-10-17 05:14] LABS: HEMATOCRIT 30.9 % (42.0-52.0); HEMOGLOBIN 10.7 g/dl (14.0-18.0)
[2016-10-17 05:22] LABS: POTASSIUM 4.3 mmol/L (3.5-5.1)
[2016-10-17 05:24] LABS: CREATININE 0.67 mg/dl (0.61-1.24)
[2016-10-17 05:25] LABS: CALCIUM 8.7 mg/dl (8.4-10.2)
[2016-10-17] MEDS: PANTOPRAZOLE (EC) 40 MG TAB PO SCH (05:30)
[2016-10-17] MEDS: traMADol 50 MG TAB PO SCH (05:31)
[2016-10-17 07:39] VITALS: BP 133/62; RESP 18
[2016-10-17] MEDS: HYDROCODONE/APAP (5/325) TAB PO PRN (09:40)
[2016-10-17] MEDS: ASPIRIN (EC) 325 MG TAB PO SCH (09:41)
[2016-10-17] MEDS: PREGABALIN 25 MG CAP PO SCH (09:41)
[2016-10-17] MEDS: CELECOXIB 200 MG CAP PO SCH (09:41)
[2016-10-17] MEDS: DOCUSATE SODIUM 100 MG CAP PO SCH (09:41)
--- NOTE | 2016-10-17 11:55 | CONS ---
Date/Time of Note Date/Time of Note DATE: 10/17/16 TIME: 11:54 Assessment/Plan Assessment/Plan Additional Assessment/Plan 1. Stable, postoperative right hip replacement. 2. History of gastroesophageal reflux disease, asx 3. Can dc if ok with ortho and PT Consultation Date/Type/Reason Admit Date/Time Oct 14, 2016 at 05:37 Detailed Summary Respiratory: no complaints, No cough, No shortness of breath Cardiovascular: No chest pain Gastrointestinal: No nausea, No pain Genitourinary: no complaints Musculoskeletal: bone/joint pain (less right hip pain) Exam/Review of Systems Vital Signs Vitals Vital Signs Date Time Temp Pulse Resp B/P Pulse Ox O2 Delivery O2 Flow Rate FiO2 10/17/16 07:39 98.5 73 18 133/62 96 10/16/16 13:00 Nasal Cannula 10/16/16 10:01 2.0 Intake and Output 10/16/16 10/16/16 10/17/16 15:00 23:00 07:00 Intake Total 1450 ml 480 ml Output Total 1000 ml Balance 450 ml 480 ml Exam Neck: No jvd Respiratory: clear to auscultation Cardiovascular: regular rate and rhythm Gastrointestinal: soft Extremities: No edema (and no calf tend bilat) Results Result Diagram: 10/17/16 0432 10/17/16 0432 Results 24 hrs Laboratory Tests Test 10/17/16 04:32 Anion Gap 11 Blood Urea Nitrogen 17 Calcium Level 8.7 Carbon Dioxide Level 34 H Chloride Level 99 Creatinine 0.67 Glucose Level 118 Hematocrit 30.9 L Hemoglobin 10.7 L Potassium Level 4.3 Sodium Level 140 Medications Medications Current Medications Bupivacaine Liposome (Exparel 266 Mg/ 20 ml Vial) 266 mg INTRA-OP INFIL Last administered on 10/14/16 09:28; Admin Dose 266 MG; Start 10/14/16 at 07:00; Stop 10/18/16 at 06:59 Ropinirole HCl (Requip) 0.5 mg HS PO Last administered on 10/16/16 21:22; Admin Dose 0.5 MG; Start 10/14/16 at 21:00 Celecoxib (Celebrex) 200 mg DAILY PO Last administered on 10/17/16 09:41; Admin Dose 200 MG; Start 10/15/16 at 09:00 Tramadol HCl (Ultram) 50 mg Q6 PO Last administered on 10/17/16 05:31; Admin Dose 50 MG; Start 10/14/16 at 12:00; Stop 10/17/16 at 11:59 Hydromorphone HCl (Dilaudid) 1 mg Q3H PRN IV PAIN LEVEL 8-10 Last administered on 10/15/16 21:34; Admin Dose 1 MG; Start 10/14/16 at 10:30 Ondansetron HCl (Zofran Inj) 4 mg Q6H PRN IV NAUSEA AND/OR VOMITING; Start 09/18 at 10:30 Bisacodyl (Dulcolax Supp) 10 mg Q12H PRN [place] CONSTIPATION Last administered on 21:23; Admin Dose 10 MG; Start 10/14/16 at 10:30 Magnesium Hydroxide (Milk Of Mag) 30 ml BID PRN PO CONSTIPATION Last administered on 10/16/16 18:18; Admin Dose 30 ML; Start 10/14/16 at 10:30 Sodium Biphosphate/ Sodium Phosphate (Fleet Enema) 133 ml DAILY PRN [place] CONSTIPATION; Start 10/14/16 at 10:30 Docusate Sodium (Colace) 100 mg BID PO Last administered on 10/17/16 09:41; Admin Dose 100 MG; Start 10/14/16 at 21:00 Diphenhydramine HCl (Benadryl) 25 mg Q6H PRN PO PRURITUS; Start 10/14/16 at 10: 30 Aspirin (Ecotrin) 325 mg BID PO Last administered on 10/17/16 09:41; Admin Dose 325 MG; Start 10/15/16 at 09:00 Pregabalin (Lyrica) 50 mg BID PO Last administered on 10/17/16 09:41; Admin Dose 50 MG; Start 10/14/16 at 21:00 Pantoprazole (Protonix Tab) 40 mg BID@,18 PO Last administered on 10/17/16 05:30; Admin Dose 40 MG; Start 10/14/16 at 18:00 Atorvastatin Calcium (Lipitor) 10 mg HS PO Last administered on 10/16/16 21:22 ; Admin Dose 10 MG; Start 10/14/16 at 21:00 Finasteride (Proscar) 5 mg HS PO Last administered on 10/16/16 21:23; Admin Dose 5 MG; Start 10/15/16 at 21:00 Tamsulosin HCl (Flomax) 0.4 mg HS PO Last administered on 10/16/16 21:23; Admin Dose 0.4 MG; Start 10/15/16 at 21:00 Acetaminophen/ Hydrocodone Bitart ([place] (5/325)) 1 tab Q4H PRN PO MILD PAIN LEVEL 1-3 Last administered on 10/17/16 09:40; Admin Dose 1 TAB; Start at 12:00 Acetaminophen/ Hydrocodone Bitart ([place] (5/325)) 2 tab Q4H PRN PO MODERATE PAIN LEVEL 4-6; Start 10/16/16 at 12:00 KEON WOLF MD Oct 17, 2016 11:55
--- NOTE | 2016-10-17 15:53 | PN ---
DATE: HISTORY OF PRESENT ILLNESS: The patient now 3 days out following total hip replacement. He is plea sed with the result of his surgery. He will be transferred to a convalescent facility today. PHYSICAL EXAMINATION: His temperature is normal. His wound looks excellent. LABORATORIES: Hemoglobin is 10.7. ASSESSMENT: The patient is being transferred to a convalescent facility today. Dictated By: VICK SINGH/SHANNAN Conf#: [id number] DID#: [id number]
--- NOTE | 2016-10-17 22:10 | DS ---
DATE OF ADMISSION: 10/14/2016 DATE OF DISCHARGE: 10/17/2016 CONDITION UPON DISCHARGE: Stable. ADMITTING DIAGNOSIS: Right hip osteoarthritis. DISCHARGE DIAGNOSIS: Status post right anterior total hip arthroplasty. PROCEDURE PERFORMED: Right anterior total hip arthroplasty. HOSPITAL COURSE: This is an 86-year-old male who was seen in the clinic initially complaining of ri ght hip and groin pain. He had undergone conservative modalities unsuccessfully, and it was thought he would benefit from a right anterior total hip arthroplasty. On 10/14/2016, the patient was admi tted and taken to the operating room, where he underwent a right anterior total hip arthroplasty. T here were no intraoperative complications. The patient tolerated the procedure well. He was taken to the recovery room in stable condition. Pain was well controlled with oral pain medication. He w as started on aspirin and SCDs for DVT prophylaxis. He remained hemodynamically stable and neurovas cularly intact throughout his hospital stay. He began physical therapy postoperatively and continue d to make good progress. The patient was requesting to go to [facility]. On postoperative day 3, he was deemed stable for transfer. Prior to transfer, the incision was inspect ed and noted to be clean, dry and intact. Dressing changes were done prior to the patient going to [facility]. LABORATORY ANALYSIS UPON DISCHARGE: Hemoglobin 10.7, hematocrit 30.9. Chemistry panel was within n ormal limits. DISCHARGE MEDICATIONS: 1. [place] 5/325 mg. 2. Aspirin 325 mg. 3. Tramadol 50 mg. 4. Protonix 40 mg. The patient is to resume all of his normal home medication. DISCHARGE INSTRUCTIONS: The patient will be transferred to [facility] in stab le condition. He is to resume a normal diet. Activities include weightbearing as tolerated on righ t lower extremity. He is to begin physical therapy at the facility. He will be transferred with th e medications noted above. Additionally, he is to resume all his normal home medication. The patie nt is to call the office or go to the emergency room for any concerns including increased redness, s welling, drainage, fever or any concern regarding the operation or site of incision. FOLLOWUP: The patient to follow up in the office with Dr. Pederson on 10/25/2016. Dictated By: OVIDIO PATRICIO for BELLA PLASENCIA/SHANNAN Conf#: [id number] DID#: [id number]
== END 2016-10-17 12:45 | DRG 470 ==
LOC: REC 05:37 → MS1 12:08
PROVIDERS: ADMIT Orthopaedic Surgery; ATTEND Orthopaedic Surgery
PROC: 0SR904A Replacement of Right Hip Joint with Ceramic on Polyethylene Synthetic Substitute, Uncemented, Open Approach (ICD-10-PCS; principal; 2016-10-14 07:00)
DX: M84.359A Stress fracture, hip, unspecified, initial encounter for fracture (principal); G62.9 Polyneuropathy, unspecified; X58.XXXA Exposure to other specified factors, initial encounter; Y93.89 Activity, other specified; Y92.89 Other specified places as the place of occurrence of the external cause; Y99.8 Other external cause status; E78.5 Hyperlipidemia, unspecified; K21.9 Gastro-esophageal reflux disease without esophagitis; N40.0 Benign prostatic hyperplasia without lower urinary tract symptoms; M19.90 Unspecified osteoarthritis, unspecified site; M17.10 Unilateral primary osteoarthritis, unspecified knee; M16.10 Unilateral primary osteoarthritis, unspecified hip; M47.816 Spondylosis without myelopathy or radiculopathy, lumbar region; I10 Essential (primary) hypertension; D12.6 Benign neoplasm of colon, unspecified; Z79.82 Long term (current) use of aspirin
CPT/HCPCS: 72170; 73500; 73530; 80048; 81003; 85014; 85018; 86850; 86900; 86901; 86920; 87081; 87086; 88304; 88311; 97116; 97164; 97167; 97530; Z7610; C1776; C9290; J0131; J0171; J0360; J0690; J0697; J0735; J1100; J1170; J1885; J2274; J2405; J2710; J2765; J3370; J7120

== ENCOUNTER → 2016-10-25 | Outpatient (CLI) | payer MEDICARE, MEDICAID ==
[~2016-10-25] MED LIST changes: -BACL10TA PO; -OXYC-279 PO; -PROM6.2514 PO; +TRAM50TA2 PO; -ULT50 PO
== END | disposition home or self-care (01) ==
LOC: HKI 09:00
PROVIDERS: ATTEND Orthopaedic Surgery
DX: Z47.1 Aftercare following joint replacement surgery (principal); M16.11 Unilateral primary osteoarthritis, right hip; Z96.641 Presence of right artificial hip joint
CPT/HCPCS: G0463

== ENCOUNTER → 2016-12-06 | Outpatient (CLI) | payer MEDICARE, MEDICAID ==
--- NOTE | 2016-12-06 11:52 | RADRPT ---
PROCEDURE: XR right hip. CLINICAL INDICATION: Hip pain TECHNIQUE: AP pelvis/lateral right hip view performed. COMPARISON: 10/14/2016 FINDINGS: There is a right total hip replacement. There is no evidence of loosening of the prosthesis. There is severe left hip osteoarthrosis. This is associated with joint space narrowing, subchondral sclerosis, subchondral cyst formation and osteophytosis. There is normal osseous mineralization. N o fractures or osseous lesions are identified. The soft tissues are unremarkable. IMPRESSION: Right total hip replacement. Severe left hip osteoarthrosis. RPTAT: HGDB .Vasu Sosa MD, Date Time Electronically viewed and signed by .Vasu Sosa MD, on 12/06/2016 11:51 .B/
== END | disposition home or self-care (01) ==
LOC: HKI 11:15
PROVIDERS: ATTEND Orthopaedic Surgery
DX: Z47.1 Aftercare following joint replacement surgery (principal); M16.11 Unilateral primary osteoarthritis, right hip; M16.12 Unilateral primary osteoarthritis, left hip; M25.552 Pain in left hip; Z96.641 Presence of right artificial hip joint
CPT/HCPCS: 73502

== ENCOUNTER → 2017-03-02 | Outpatient (CLI) | payer MEDICARE, MEDICAID ==
[~2017-03-02] MED LIST changes: +ASPI-664 PO; +BACL10TA PO; +LOVA40TA64 PO
== END | disposition home or self-care (01) ==
LOC: HKI 10:06
PROVIDERS: ATTEND Orthopaedic Surgery
DX: M25.552 Pain in left hip (principal); M16.12 Unilateral primary osteoarthritis, left hip; Z96.641 Presence of right artificial hip joint
CPT/HCPCS: G0463

== ENCOUNTER 2017-03-08 08:07 | Inpatient (IN) | payer MEDICARE, OTHER ==
[2017-03-08] VITALS (26 sets, daily range): BP systolic 120–193; BP diastolic 59–89; PULSE 53–70; RESP 15–23; Ht 167.6 cm; Wt 86.9 kg
[~2017-03-08] VITALS: Ht 167.6 cm; Wt 86.9 kg
[2017-03-08] MEDS: LACTATED RINGER'S 1,000 ML IV SCH ×4 (08:00→21:42)
[~2017-03-08 08:07] MED LIST changes: -ASPI-664 PO; -BACL10TA PO; +BUPIVACAINE LIPOSOME/PF 266 MG/20 ML VIAL INFIL ONE; +CEFAZOLIN 2GM/50 ML (PMX) 50 ML X1 BEFORE INCISION IVPB ONE; +CELECOXIB 400 MG PO X1 DOSE PO ONE; +EPHEDrine SULFATE 50 MG/5 ML SYG ONE; -LOVA40TA64 PO; +PAIN COCKTAIL-CEFUROXIME IRR ONE; +PREGABALIN 300 MG PO X1 PO ONE; +TRANEXAMIC ACID 860 MG in SOD CHLORIDE 0.9% 100 ML IVPB ONE; +TRANEXAMIC ACID 860 MG in SOD CHLORIDE 0.9% 91.4 ML IV ONE; +oxyCODONE (CR) 10 MG TAB [oxyCONTIN] X1 DOSE PO ONE; +traMADOL 50 MG TAB X 1 DOSE PO ONE
[2017-03-08] MEDS ORDERED: EXPAREL NOTE (BUPIVICAINE LIPOSOMAL) XX SCH (08:30)
[2017-03-08] MEDS ORDERED: ASPI-664 PO (09:21)
[2017-03-08] MEDS ORDERED: BACL10TA PO (09:22)
[2017-03-08] MEDS ORDERED: LOVA40TA64 PO (09:23)
[2017-03-08] MEDS ORDERED: HEPARIN 1000 UNITS/ML 10 ML INJ ONE (09:24)
[2017-03-08] MEDS ORDERED: POLYMYXIN B 500000 UNIT INJ ONE (09:24)
[2017-03-08] MEDS ORDERED: MULT1TAB10 PO (09:24)
[2017-03-08] MEDS ORDERED: VANCOMYCIN 1 GM INJ ONE (09:24)
[2017-03-08] MEDS ORDERED: BACITRACIN 50000 UNITS INJ ONE (09:25)
[2017-03-08] MEDS ORDERED: CEFAZOLIN 1 GM INJ ONE (10:10)
[2017-03-08] MEDS ORDERED: METOCLOPRAMIDE 10 MG INJ ONE (10:10)
[2017-03-08] MEDS ORDERED: PROPOFOL 100 ML ONE (10:10)
[2017-03-08] MEDS ORDERED: DEXAMETHASONE 4 MG/ML 1 ML INJ ONE (10:10)
--- NOTE | 2017-03-08 10:10 | HPN ---
Date/Time of Note Date/Time of Note DATE: 03/08/17 TIME: 10:09 Interval H&P Admission Note Pt. seen H&P reviewed: No system changes No changes from H&P on 02/24/17 by BELLA Cool MD Mar 08, 2017 10:10
[2017-03-08] MEDS ORDERED: FENTAnyl 50 MCG/ML VIAL ONE (10:15)
[2017-03-08] MEDS ORDERED: ONDANSETRON 4 MG INJ ONE (10:42)
[2017-03-08] MEDS ORDERED: DIPHENHYDRAMINE 25 MG CAP PO PRN (13:00)
[2017-03-08] MEDS ORDERED: NA PHOSPHATE/BIPHOS 133 ML ENEMA PR PRN (13:00)
[2017-03-08] MEDS ORDERED: MAGNESIUM HYDROXIDE 30ML CUP PO PRN (13:00)
[2017-03-08] MEDS ORDERED: ASPIRIN (EC) 325 MG TAB PO ONE (13:00)
[2017-03-08] MEDS ORDERED: NACL 0.9% 3 ML SYG IV SCH (13:00)
[2017-03-08] MEDS ORDERED: HYDROCODONE/APAP (5/325) TAB PO PRN (13:00)
[2017-03-08] MEDS ORDERED: GABAPENTIN 300 MG CAP PO SCH (13:00)
[2017-03-08] MEDS ORDERED: ONDANSETRON 4 MG INJ IV PRN (13:00)
[2017-03-08] MEDS ORDERED: BISACODYL 10 MG SUPP PR PRN (13:00)
--- NOTE | 2017-03-08 13:03 | OPR ---
Date/Time of Note Date/Time of Note DATE: 03/08/17 TIME: 13:02 Operative Report Free Text/Dictation Dictation # [id number] Procedure Date: Mar 08, 2017 Preoperative Diagnosis Left Hip OA Postoperative Diagnosis Same Operation Performed Left Anterior NAUN Surgeon: BELLA REVELES MD assistant casino shift manager: OVIDIO FUENTES PA-C Anesthesia: general, spinal Anesthesiologist: RICK URBINA MD Estimated Blood Loss: other Specimens Femoral Head Tubes/Drains Hemovac x 1 Complications: None Pt Condition Post Procedure: critical Disposition: PACU BELLA REVELES MD Mar 08, 2017 13:03
--- NOTE | 2017-03-08 13:14 | OPR ---
DATE OF OPERATION: 03/08/2017 PREOPERATIVE DIAGNOSIS: Left hip osteoarthritis. POSTOPERATIVE DIAGNOSIS: Left hip osteoarthritis. OPERATION PERFORMED: Left anterior total hip arthroplasty. SURGEON: Bella Pederson MD TAX FORM PREPARER: SHENG Grady COMPONENTS USED: DePuy size 54 mm Gription [place] cup, 54/36 neutral AltrX polyethylene liner, si ze 7 standard Actis stem, and a 36+5 ceramic head. ANESTHESIA: Spinal plus general endotracheal intubation plus periarticular injection. ANESTHESIOLOGIST: Dr. Marin ESTIMATED BLOOD LOSS: 350 mL. INTRAVENOUS FLUIDS: Two liters crystalloid and 125 mL of autologous Cell Saver blood. SPECIMENS: Femoral head. DRAINS: Hemovac x1. COMPLICATIONS: None. DISPOSITION: The patient tolerated the procedure well and was taken to the recovery room in stable condition. INDICATIONS: The patient is an 86-year-old gentleman who has had progressive worsening pain in the left hip with radiographic evidence of severe osteoarthritis. He has failed nonsurgical means of tr eatment to control his pain including activity modifications, pain medications, and ambulatory saranya t devices. Despite these measures, he has had worsening pain, and I felt he would benefit from a to abiel hip arthroplasty through an anterior approach. The risks, benefits, and alternatives of the procedure were explained in detail to the patient. I e xplained the risks of the surgery to include, but not be limited to: bleeding and possible need for blood transfusion; infection; pain; stiffness; neurovascular injury with possible numbness, weakness , and/or paralysis anywhere from the hip down to the toes; fracture; instability; dislocation; leg l ength inequality; wear and/or loosening of the prosthesis and possible need for future revision; blo od clots; pulmonary embolism; and anesthetic complications such as heart attack, stroke, GI bleed, p neumonia, and/or . Ample time was allowed for the patient to ask questions, all of which were addressed and answered. The patient understood the risks involved and wished to proceed. Informed c onsent was signed prior to the procedure. DESCRIPTION OF PROCEDURE: The patient's left hip was initialed with a marking pen in the preoperati ve area to identify the correct operative site. The patient was brought to the operating room and t ransferred from the [facility] to the [facility] table where a spinal anesthetic was administered. T he patient was then anesthetized and intubated. A Dior catheter was placed. Both feet were placed into well-padded boots which were then placed into the leg holders of the traction booms. A timeou t was performed to confirm that the left side was the correct operative site. The patient was given 2 g of intravenous Ancef within one hour prior to the procedure. The operative hip was prepped and draped in the usual sterile fashion. A 10 cm oblique incision was made over the anterior aspect of the hip and carried down through subcu taneous tissue and fat with sharp dissection. The tensor fascia isidro was incised along the length o f the wound. The tensor fascia muscle was retracted laterally and the sartorius medially. The anter ior circumflex vessels were identified and tied off with 2-0 silk suture and coagulated with the [employer] narcisa [employer] distribution tech. The rectus femoris was elevated off the anterior capsule and an anterior capsu lectomy performed. A femoral neck osteotomy was made and the head removed from the acetabulum. The acetabulum was denuded of cartilage circumferentially, as was the femoral head. Retractors were pl aced around the acetabulum. The remnants of the labrum and ligamentum teres were excised. I reamed the acetabulum to the medial wall and then went into an anatomic position and increased the reamer size in 2 mm increments until I got a good bite and was down to bleeding subchondral bone. The [place] cup was opened and impacted into the acetabulum and sat flush circumferentially, gettin g a good bite. C-arm imaging showed it had about 40 to 45 degrees of abduction and 20 degrees of ant eversion. No acetabular screw was placed. The real liner was opened and impacted into the acetabul um and sat flush circumferentially. Attention was turned towards the femur. The operative leg was carefully lowered to the floor with the leg adducted. The foot was then exter jacqueline rotated to approximately 110 degrees. A posteromedial release was performed to optimize expos ure. The femoral hook was placed underneath the proximal femur and the hydraulic lift was then used to elevate the femur up out of the wound. The happin! cutter osteotome was used to remove the remai sunita overhanging greater trochanter. The femur was then broached, going up in one size increments u ntil it sat flush with the neck cut and a stable fit was achieved. The trial neck and head were ass embled and reduced into the acetabulum. Fluoroscopic imaging showed the components to be in good pos ition and the leg lengths and offsets to be equal. At this point, the trial was dislocated and the trial broach removed. The canal was irrigated and d ried. The real stem was opened and impacted into the femur. The trunnion was irrigated and dried, a nd the real femoral head was impacted onto the trunnion, and reduced into the acetabulum. The soft tissues were infiltrated with a mixture of 150 mg of 0.5% Bupivacaine, 8 mg of Duramorph, 3 00 mcg of epinephrine, 30 mg of Toradol, 100 mcg of clonidine, 750 mg of cefuroxime and 86 mL of nor mal saline, followed by an injection of 266 mg of liposomal Bupivacaine. At this point the hip was irrigated with a mixture of betadine/saline and then antibiotic saline with pulsatile lavage. A Hem ovac drain was placed in the deep portion of the wound and brought out the anterolateral thigh. Ther e was good hemostasis. The tensor fascia isidro was repaired with a running #1 Vicryl. The deep fat layer was irrigated and closed with 2-0 Stratafix and the subcutaneous layer closed with 3-0 Vicryl and the skin was closed with jorge l and then sealed with Dermabond. The drain was secured with 3-0 nylon. The sponge and needle counts were correct at the end of the case. The wound was covered with an occ lusive dressing. The patient was awakened, extubated, and taken to the recovery room in stable cond ition. Dictated By: BELLA JAMES/SHANNAN Conf#: [id number] DID#: [id number]
--- NOTE | 2017-03-08 13:29 | PN ---
Date/Time of Note Date/Time of Note DATE: 03/08/17 TIME: 13:27 Assessment/Plan Lines/Catheters IV Catheter Type (from Nrsg): Peripheral IV Assessment/Plan Assessment/Plan Stable in PACU, s/p left anterior NAUN -continue Ancef -pain meds as needed -ASA/SCDs for DVT prophylaxis -OOB with PT -check AM labs -monitor drain -d/c fair in AM XR shows good alignment with no fracture or dislocation Subjective 24 Hr Interval Summary Stable in PACU. Denies pain. Moving all extremities. Exam/Review of Systems Vital Signs Vitals Vital Signs Date Time Temp Pulse Resp B/P Pulse Ox O2 Delivery O2 Flow Rate FiO2 03/08/17 13:03 64 16 137/62 100 Nasal Cannula 2.0 03/08/17 12:58 97.9 Exam Free Text/Dictation Hemovac: minimal Dressing dry Incision clean, dry, and intact without redness or drainage 5/5 Quadriceps, Tibialis Anterior, EHL, Gastroc, Soleus, Peroneals Normal sensation Palpable DT/PT, CR <2 sec No distal edema OVIDIO FUENTES PA-C Mar 08, 2017 13:29
[2017-03-08] MEDS: CEFAZOLIN 2 GM/50 ML (PMX) 50 ML IVPB SCH ×2 (13:43→21:43)
[2017-03-08 13:53] LABS: HEMATOCRIT 37.3 % (42.0-52.0)
--- NOTE | 2017-03-08 14:16 | RADRPT ---
PROCEDURE: XR Pelvis. CLINICAL INDICATION: Postop hip replacement. TECHNIQUE: Pelvic x-ray, single AP view. COMPARISON: 12/06/2016. FINDINGS: Bone density appears decreased. Right hip arthroplasty hardware is in place and unchanged in appear ance. Left hip arthroplasty hardware is now in place. Postoperative air and edema are seen within the immediate surrounding soft tissues. A small surgical drain is also in place. The hip joints ar e intact. Degenerative changes of the lower lumbar spine are present. IMPRESSION: Right hip arthroplasty without evidence of hardware complication. New left hip arthroplasty with postoperative air and edema within the immediate surrounding soft tis sues. RPTAT: HLST .Olimpia Barron MD, MD Date Time Electronically viewed and signed by .Olimpia Barron MD, MD on 03/08/2017 14:16 .T/
[2017-03-08 14:19] LABS: CALCIUM 8.6 mg/dl (8.4-10.2); CREATININE 0.71 mg/dl (0.61-1.24); POTASSIUM 4.7 mmol/L (3.5-5.1)
--- NOTE | 2017-03-08 15:01 | CONS ---
DATE OF ADMISSION: 03/08/2017 DATE OF CONSULTATION: 03/08/2017 TYPE OF CONSULTATION: Postoperative medical consultation Dear Dr. Pdeerson: Thank you very much for allowing me to evaluate the above patient, an 86-year-old male who just unde rwent left anterior hip replacement. HISTORICAL EVENTS: As you well know, this patient has had progressive disabling pain involving his left hip, and elected to proceed with surgery. In recovery postoperatively, he is comfortable witho ut cough, wheezing, shortness of breath, nausea, vomiting, abdominal or chest pain. PAST MEDICAL HISTORY: 1. Benign prostatic hypertrophy. 2. Hyperlipidemia. 3. Hypertension. 4. History of gastroesophageal reflux. 5. History of lumbar radiculopathy. ALLERGIES: NONE. FAMILY HISTORY: To be reviewed later. Medications: To include: 1. Flomax 0.4 mg per day. 2. Gabapentin 300 mg t.i.d. 3. Lovastatin 40 mg per day. 4. Myrbetriq 25 mg per day. 5. [place] 5/325 q.6h. p.r.n. 6. Omeprazole 40 mg per day. 7. ProAir as needed. 8. Proscar 5 mg per day. 9. Aricept 5 mg per day. PHYSICAL EXAMINATION: GENERAL: [place] male, no acute distress. VITAL SIGNS: BP 128/80, pulse 70, respirations are 20, he was afebrile. EYES: Extraocular muscles were full. NOSE, MOUTH, AND THROAT: Normal. NECK: Supple. There was no jugular venous distention, thyroid enlargement or adenopathy. Carotids 2+. LUNGS: Clear. HEART: Rhythm regular, no murmur. No third or fourth sound. ABDOMEN: Nontender. Liver and spleen were not palpable. No masses or tenderness were noted. EXTREMITIES: No edema. Calves nontender. NEUROLOGIC: No lateralizing motor weakness. IMPRESSION: 1. Stable postoperative left hip replacement. 2. History of prostatism. We will continue Flomax and Proscar and observe post-void residual vol umes once the Dior catheter is removed: 3. Hyperlipidemia. Will continue his statin. 4. We will evaluate daily for signs and symptoms of thromboembolic disease despite appropriate jose p venous thrombosis prophylaxis. 3. Aricept 5 mg daily. Dictated By: KEON WOLF MD MR/NTS Conf#: [id number] [facility]#: [id number]
[2017-03-08] MEDS: GABAPENTIN 300 MG CAP PO SCH ×2 (15:59→21:43)
[2017-03-08] MEDS: traMADol 50 MG TAB PO SCH ×2 (15:59→18:04)
[2017-03-08] MEDS ORDERED: TRANEXAMIC ACID 870 MG in SOD CHLORIDE 0.9% 100 ML IVPB ONE ×2 (16:00→19:00)
[2017-03-08] MEDS: PANTOPRAZOLE (EC) 40 MG TAB PO SCH (18:09)
[2017-03-08] MEDS: ATORVASTATIN 10 MG TAB PO SCH (21:43)
[2017-03-08] MEDS: DOCUSATE SODIUM 100 MG CAP PO SCH (21:43)
[2017-03-09 00:07] VITALS: BP 138/62; RESP 18
[2017-03-09 01:08] VITALS: BP 124/68; PULSE 64; RESP 18
[2017-03-09] MEDS: LACTATED RINGER'S 1,000 ML IV SCH ×5 (04:10→21:49)
[2017-03-09] MEDS: CEFAZOLIN 2 GM/50 ML (PMX) 50 ML IVPB SCH (04:19)
[2017-03-09 05:31] LABS: HEMATOCRIT 36.7 % (42.0-52.0); HEMOGLOBIN 11.5 g/dl (14.0-18.0)
[2017-03-09] MEDS: PANTOPRAZOLE (EC) 40 MG TAB PO SCH ×2 (05:38→17:59)
[2017-03-09] MEDS: traMADol 50 MG TAB PO SCH ×3 (05:38→17:58)
[2017-03-09 05:58] LABS: CREATININE 0.68 mg/dl (0.61-1.24); POTASSIUM 4.4 mmol/L (3.5-5.1)
--- NOTE | 2017-03-09 07:35 | RADRPT ---
PROCEDURE: X-ray fluoroscopy guidance CLINICAL INDICATION: LT HIP REPLACEMENT TECHNIQUE: Fluoroscopic guidance was utilized for intraoperative procedure. COMPARISON: None. FINDINGS: Fluoroscopic guidance was utilized for intraoperative procedure. 0.9 minutes of fluoroscopy time wa s utilized for the procedure. 13 x-ray images were obtained during the procedure. There has been placement of a left hip prosthesis in near anatomic alignment. IMPRESSION: X-ray fluoroscopic guidance utilized for intraoperative procedure. Placement of the left hip prosthesis in near anatomic alignment. Please see procedure note details. RPTAT: EE Physician Dre Date Time Electronically viewed and signed by Physician Dre on 03/09/2017 07:34 /
[2017-03-09 08:14] VITALS: BP 160/72; RESP 19
--- NOTE | 2017-03-09 08:47 | PN ---
Date/Time of Note Date/Time of Note DATE: 03/09/17 TIME: 08:46 Assessment/Plan Lines/Catheters IV Catheter Type (from Nrsg): Peripheral IV Dior in Place (from Nrsg): Yes Assessment/Plan Assessment/Plan Stable POD #1, s/p left anterior NAUN -d/c Ancef -pain meds as needed -ASA/SCDs for DVT prophylaxis -OOB with PT -drain removed -check AM labs -d/c planning. Would like to go to [facility] upon discharge Subjective 24 Hr Interval Summary No acute overnight events. Denies significant pain. H&H stable. Did not start PT yesterday. VSS ,afebrile. Would like to go to [facility] upon discharge. Exam/Review of Systems Vital Signs Vitals Vital Signs Date Time Temp Pulse Resp B/P Pulse Ox O2 Delivery O2 Flow Rate FiO2 03/09/17 08:14 98.0 62 19 160/72 99 03/09/17 01:08 Nasal Cannula 2.0 Intake and Output 03/08/17 03/08/17 03/09/17 15:00 23:00 07:00 Intake Total 250 ml 50 ml 1350 ml Output Total 910 ml 1950 ml Balance -660 ml 50 ml -600 ml Exam Free Text/Dictation Hemovac: 260cc Dressing dry Incision clean, dry, and intact without redness or drainage 5/5 Quadriceps, Tibialis Anterior, EHL, Gastroc, Soleus, Peroneals Normal sensation Palpable DT/PT, CR <2 sec No distal edema Results Result Diagram: 03/09/17 0424 03/09/17 0424 OVIDIO FUENTES PA-C Mar 09, 2017 08:47
[2017-03-09] MEDS: GABAPENTIN 300 MG CAP PO SCH ×3 (09:22→21:42)
[2017-03-09] MEDS: TAMSULOSIN (SR) 0.4 MG CAP PO SCH (09:22)
[2017-03-09] MEDS: DOCUSATE SODIUM 100 MG CAP PO SCH ×2 (09:22→21:42)
[2017-03-09] MEDS: FINASTERIDE 5 MG TAB PO SCH (09:22)
[2017-03-09] MEDS: ASPIRIN (EC) 325 MG TAB PO SCH ×2 (09:22→21:42)
--- NOTE | 2017-03-09 09:45 | CONS ---
Date/Time of Note Date/Time of Note DATE: 03/09/17 TIME: 09:44 Assessment/Plan Assessment/Plan Additional Assessment/Plan 1. S/P left hip replacement 2. Hx GERD, asx 3. Hx prostatism, will check post void residual Consultation Date/Type/Reason Admit Date/Time Mar 08, 2017 at 08:07 Initial Consult Date Detailed Summary Respiratory: No cough, No shortness of breath Cardiovascular: No chest pain Gastrointestinal: no complaints Genitourinary: no complaints Musculoskeletal: bone/joint pain (mild left hip pain) Exam/Review of Systems Vital Signs Vitals Vital Signs Date Time Temp Pulse Resp B/P Pulse Ox O2 Delivery O2 Flow Rate FiO2 03/09/17 08:14 98.0 62 19 160/72 99 03/09/17 01:08 Nasal Cannula 2.0 Intake and Output 03/08/17 03/08/17 03/09/17 15:00 23:00 07:00 Intake Total 250 ml 50 ml 1350 ml Output Total 910 ml 1950 ml Balance -660 ml 50 ml -600 ml Exam Neck: No jvd Respiratory: clear to auscultation Cardiovascular: regular rate and rhythm Gastrointestinal: soft Extremities: No edema (and no calf tend) Results Result Diagram: 03/09/17 0424 03/09/17 0424 Results 24 hrs Laboratory Tests Test 03/08/17 13:40 03/09/17 04:24 Hemoglobin 12.0 L 11.5 L Hematocrit 37.3 #L 36.7 L Sodium Level 141 142 Potassium Level 4.7 4.4 Chloride Level 107 106 Carbon Dioxide Level 28 29 Anion Gap 11 11 Blood Urea Nitrogen 16 14 Creatinine 0.71 0.68 Glucose Level 153 131 Calcium Level 8.6 9.0 Medications Medications Current Medications Lactated Ringer's (Lr) 1,000 ml @ 100 mls/hr Q10H IV Last administered on 04:10; Admin Dose 100 MLS/HR; Start 03/08/17 at 08:00 Miscellaneous Information 1 ea NOTE XX Last administered on 03/08/17 11:30; Admin Dose 1 EA; Start 03/08/17 at 08:30; Stop 03/12/17 at 08:29 Finasteride (Proscar) 5 mg DAILY PO Last administered on 03/09/17 09:22; Admin Dose 5 MG; Start 03/09/17 at 09:00 Gabapentin (Neurontin) 300 mg TID PO Last administered on 03/09/17 09:22; Admin Dose 300 MG; Start 03/08/17 at 13:00 Tamsulosin HCl 0.4 mg 0.4 mg DAILY PO Last administered on 03/09/17 09:22; Admin Dose 0.4 MG; Start 03/09/17 at 09:00 Lactated Ringer's (Lr) 1,000 ml @ 125 mls/hr Q8H IV Last administered on 09:22; Admin Dose 125 MLS/HR; Start 03/08/17 at 12:50 Tramadol HCl (Ultram) 50 mg Q6 PO Last administered on 03/09/17 05:38; Admin Dose 50 MG; Start 03/08/17 at 12:00; Stop 03/11/17 at 11:59 Acetaminophen/ Hydrocodone Bitart ([place] (5/325)) 1 tab Q4H PRN PO PAIN LEVEL 1 -3; Start 03/08/17 at 13:00 Acetaminophen/ Hydrocodone Bitart ([place] (5/325)) 2 tab Q4H PRN PO PAIN LEVEL 4 -7; Start 03/08/17 at 13:00 Hydromorphone HCl (Dilaudid) 1 mg Q3H PRN IV PAIN LEVEL 8-10; Start 03/08/17 at 13:00 Ondansetron HCl (Zofran Inj) 4 mg Q6H PRN IV NAUSEA AND/OR VOMITING; Start 03/08 at 13:00 Bisacodyl (Dulcolax Supp) 10 mg Q12H PRN [place] CONSTIPATION; Start 03/08/17 at 13: 00 Magnesium Hydroxide (Milk Of Mag) 30 ml BID PRN PO CONSTIPATION; Start 03/08/17 at 13:00 Sodium Biphosphate/ Sodium Phosphate (Fleet Enema) 133 ml DAILY PRN [place] CONSTIPATION; Start 03/08/17 at 13:00 Docusate Sodium (Colace) 100 mg BID PO Last administered on 03/09/17 09:22; Admin Dose 100 MG; Start 03/08/17 at 21:00 Diphenhydramine HCl (Benadryl) 25 mg Q6H PRN PO PRURITUS; Start 03/08/17 at 13: 00 Aspirin (Ecotrin) 325 mg BID PO Last administered on 03/09/17 09:22; Admin Dose 325 MG; Start 03/09/17 at 09:00 Pantoprazole (Protonix Tab) 40 mg BID@06,18 PO Last administered on 03/09/17 05 :38; Admin Dose 40 MG; Start 03/08/17 at 18:00 Atorvastatin Calcium (Lipitor) 10 mg DAILY@21 PO Last administered on 03/08/17 21:43; Admin Dose 10 MG; Start 03/08/17 at 21:00 KEON WOLF MD Mar 09, 2017 09:45
[2017-03-09] MEDS: HYDROmorphONE 1 MG/ML SYG IV PRN ×2 (10:30→13:26)
[2017-03-09 21:21] VITALS: BP 132/64; RESP 20
[2017-03-09] MEDS: ATORVASTATIN 10 MG TAB PO SCH (21:42)
[2017-03-10 05:15] LABS: HEMATOCRIT 36.7 % (42.0-52.0); HEMOGLOBIN 11.8 g/dl (14.0-18.0)
[2017-03-10 05:38] LABS: CALCIUM 9.1 mg/dl (8.4-10.2); CREATININE 0.68 mg/dl (0.61-1.24); POTASSIUM 4.2 mmol/L (3.5-5.1)
[2017-03-10] MEDS: PANTOPRAZOLE (EC) 40 MG TAB PO SCH ×2 (06:46→17:25)
[2017-03-10] MEDS: traMADol 50 MG TAB PO SCH ×4 (06:46→17:25)
[2017-03-10] MEDS: LACTATED RINGER'S 1,000 ML IV SCH ×6 (06:46→20:50)
[2017-03-10 08:23] VITALS: BP 142/66; RESP 18
[2017-03-10] MEDS: HYDROCODONE/APAP (5/325) TAB PO PRN (08:35)
[2017-03-10] MEDS: DOCUSATE SODIUM 100 MG CAP PO SCH ×2 (08:35→21:00)
[2017-03-10] MEDS: TAMSULOSIN (SR) 0.4 MG CAP PO SCH (08:35)
[2017-03-10] MEDS: GABAPENTIN 300 MG CAP PO SCH ×3 (08:35→21:00)
[2017-03-10] MEDS: FINASTERIDE 5 MG TAB PO SCH (08:35)
[2017-03-10] MEDS: ASPIRIN (EC) 325 MG TAB PO SCH ×2 (08:35→21:00)
--- NOTE | 2017-03-10 12:17 | CONS ---
Date/Time of Note Date/Time of Note DATE: 03/10/17 TIME: 12:15 Assessment/Plan Assessment/Plan Additional Assessment/Plan 1. Doing well post op left hip replacement. 2. Urinary freq with signif post void residual, will resume mybertiq 1-2 d, IV stopped 3. GERD is quiet 4. Labs rev Consultation Date/Type/Reason Admit Date/Time Mar 08, 2017 at 08:07 Detailed Summary Respiratory: No cough, No shortness of breath Cardiovascular: No chest pain Gastrointestinal: no complaints Genitourinary: other (urinary freq without dysuria) Musculoskeletal: bone/joint pain (left hip mild pain) Exam/Review of Systems Vital Signs Vitals Vital Signs Date Time Temp Pulse Resp B/P Pulse Ox O2 Delivery O2 Flow Rate FiO2 03/10/17 08:23 97.9 76 18 142/66 93 03/09/17 01:08 Nasal Cannula 2.0 Intake and Output 03/09/17 03/09/17 03/10/17 15:00 23:00 07:00 Intake Total 600 ml 1930 ml 850 ml Output Total 1280 ml 1900 ml Balance 600 ml 650 ml -1050 ml Exam Neck: jvd Respiratory: clear to auscultation Cardiovascular: regular rate and rhythm Gastrointestinal: soft Extremities: No edema (and no calf tend bilat) Results Result Diagram: 03/10/17 0435 03/10/17 0435 Results 24 hrs Laboratory Tests Test 03/10/17 04:35 Hemoglobin 11.8 L Hematocrit 36.7 L Sodium Level 139 Potassium Level 4.2 Chloride Level 101 Carbon Dioxide Level 33 H Anion Gap 9 Blood Urea Nitrogen 12 Creatinine 0.68 Glucose Level 125 Calcium Level 9.1 Medications Medications Current Medications Lactated Ringer's (Lr) 1,000 ml @ 100 mls/hr Q10H IV Last administered on 04:10; Admin Dose 100 MLS/HR; Start 03/08/17 at 08:00 Miscellaneous Information 1 ea NOTE XX Last administered on 03/08/17 11:30; Admin Dose 1 EA; Start 03/08/17 at 08:30; Stop 03/12/17 at 08:29 Finasteride (Proscar) 5 mg DAILY PO Last administered on 03/10/17 08:35; Admin Dose 5 MG; Start 03/09/17 at 09:00 Gabapentin (Neurontin) 300 mg TID PO Last administered on 03/10/17 08:35; Admin Dose 300 MG; Start 03/08/17 at 13:00 Tamsulosin HCl 0.4 mg 0.4 mg DAILY PO Last administered on 03/10/17 08:35; Admin Dose 0.4 MG; Start 03/09/17 at 09:00 Lactated Ringer's (Lr) 1,000 ml @ 125 mls/hr Q8H IV Last administered on 06:46; Admin Dose 125 MLS/HR; Start 03/08/17 at 12:50 Tramadol HCl (Ultram) 50 mg Q6 PO Last administered on 03/10/17 11:43; Admin Dose 50 MG; Start 03/08/17 at 12:00; Stop 03/11/17 at 11:59 Acetaminophen/ Hydrocodone Bitart ([place] (5/325)) 1 tab Q4H PRN PO PAIN LEVEL 1 -3; Start 03/08/17 at 13:00 Acetaminophen/ Hydrocodone Bitart ([place] (5/325)) 2 tab Q4H PRN PO PAIN LEVEL 4 -7 Last administered on 03/10/17 08:35; Admin Dose 2 TAB; Start 03/08/17 at 13:00 Hydromorphone HCl (Dilaudid) 1 mg Q3H PRN IV PAIN LEVEL 8-10 Last administered on 03/09/17 13:26; Admin Dose 1 MG; Start 03/08/17 at 13:00 Ondansetron HCl (Zofran Inj) 4 mg Q6H PRN IV NAUSEA AND/OR VOMITING; Start 03/08 at 13:00 Bisacodyl (Dulcolax Supp) 10 mg Q12H PRN [place] CONSTIPATION; Start 03/08/17 at 13: 00 Magnesium Hydroxide (Milk Of Mag) 30 ml BID PRN PO CONSTIPATION; Start 03/08/17 at 13:00 Sodium Biphosphate/ Sodium Phosphate (Fleet Enema) 133 ml DAILY PRN [place] CONSTIPATION; Start 03/08/17 at 13:00 Docusate Sodium (Colace) 100 mg BID PO Last administered on 03/10/17 08:35; Admin Dose 100 MG; Start 03/08/17 at 21:00 Diphenhydramine HCl (Benadryl) 25 mg Q6H PRN PO PRURITUS; Start 03/08/17 at 13: 00 Aspirin (Ecotrin) 325 mg BID PO Last administered on 03/10/17 08:35; Admin Dose 325 MG; Start 03/09/17 at 09:00 Pantoprazole (Protonix Tab) 40 mg BID@06,18 PO Last administered on 03/10/17 06 :46; Admin Dose 40 MG; Start 03/08/17 at 18:00 Atorvastatin Calcium (Lipitor) 10 mg DAILY@21 PO Last administered on 03/09/17 21:42; Admin Dose 10 MG; Start 03/08/17 at 21:00 KEON WOLF MD Mar 10, 2017 12:17
[2017-03-10 12:44] LABS: ADD UMIC NO; URINE BILIRUBIN (Dip) NEGATIVE (NEGATIVE); URINE BLOOD (Dip) NEGATIVE (NEGATIVE); URINE COLOR LT. YELLOW (YELLOW); URINE GLUCOSE (Dip) NEGATIVE (NEGATIVE); URINE KETONES (Dip) NEGATIVE (NEGATIVE); URINE LEUKOCYTE ESTERASE (Dip) NEGATIVE (NEGATIVE); URINE NITRITE (Dip) NEGATIVE (NEGATIVE); URINE TOTAL PROTEIN (Dip) NEGATIVE (NEGATIVE); URINE UROBILINOGEN (Dip) 0.2 E.U./dL (0.1-1.0)
--- NOTE | 2017-03-10 13:09 | PN ---
Date/Time of Note Date/Time of Note DATE: 03/09/17 TIME: 13:06 Anesthesia note: A 86 year male s/p left hip arthroplasty POD #1 under GA and spinal is doing well. no N/V, itching, headache, or back pain. pain is controlled. back is clean. Assessment/Plan VTE Prophylaxis VTE Prophylaxis Intervention: ambulation Lines/Catheters IV [facility]from [facility] Saline Lock Urinary Cath still in place: Yes Exam/Review of Systems Vital Signs Vitals Vital Signs Date Time Temp Pulse Resp B/P Pulse Ox O2 Delivery O2 Flow Rate FiO2 03/10/17 08:23 97.9 76 18 142/66 93 03/09/17 01:08 Nasal Cannula 2.0 Intake and Output 03/09/17 03/09/17 03/10/17 15:00 23:00 07:00 Intake Total 600 ml 1930 ml 850 ml Output Total 1280 ml 1900 ml Balance 600 ml 650 ml -1050 ml Results Result Diagram: 03/10/17 0435 03/10/17 0435 Results 24 hrs Laboratory Tests Test 03/10/17 04:35 03/10/17 12:35 Hemoglobin 11.8 L Hematocrit 36.7 L Sodium Level 139 Potassium Level 4.2 Chloride Level 101 Carbon Dioxide Level 33 H Anion Gap 9 Blood Urea Nitrogen 12 Creatinine 0.68 Glucose Level 125 Calcium Level 9.1 Urine Color LT. YELLOW Urine Clarity CLEAR Urine pH 7.0 Urine Specific [place] 1.010 Urine Ketones NEGATIVE Urine Nitrite NEGATIVE Urine Bilirubin NEGATIVE Urine Urobilinogen 0.2 E.U./dL Urine Leukocyte Esterase NEGATIVE Urine Hemoglobin NEGATIVE Urine Glucose NEGATIVE Urine Total Protein NEGATIVE Medications Medications Current Medications Lactated Ringer's (Lr) 1,000 ml @ 100 mls/hr Q10H IV Last administered on 04:10; Admin Dose 100 MLS/HR; Start 03/08/17 at 08:00 Miscellaneous Information 1 ea NOTE XX Last administered on 03/08/17 11:30; Admin Dose 1 EA; Start 03/08/17 at 08:30; Stop 03/12/17 at 08:29 Finasteride (Proscar) 5 mg DAILY PO Last administered on 03/10/17 08:35; Admin Dose 5 MG; Start 03/09/17 at 09:00 Gabapentin (Neurontin) 300 mg TID PO Last administered on 03/10/17 12:26; Admin Dose 300 MG; Start 03/08/17 at 13:00 Tamsulosin HCl 0.4 mg 0.4 mg DAILY PO Last administered on 03/10/17 08:35; Admin Dose 0.4 MG; Start 03/09/17 at 09:00 Lactated Ringer's (Lr) 1,000 ml @ 125 mls/hr Q8H IV Last administered on 06:46; Admin Dose 125 MLS/HR; Start 03/08/17 at 12:50 Tramadol HCl (Ultram) 50 mg Q6 PO Last administered on 03/10/17 11:43; Admin Dose 50 MG; Start 03/08/17 at 12:00; Stop 03/11/17 at 11:59 Acetaminophen/ Hydrocodone Bitart ([place] (5/325)) 1 tab Q4H PRN PO PAIN LEVEL 1 -3; Start 03/08/17 at 13:00 Acetaminophen/ Hydrocodone Bitart ([place] (5/325)) 2 tab Q4H PRN PO PAIN LEVEL 4 -7 Last administered on 03/10/17 08:35; Admin Dose 2 TAB; Start 03/08/17 at 13:00 Hydromorphone HCl (Dilaudid) 1 mg Q3H PRN IV PAIN LEVEL 8-10 Last administered on 03/09/17 13:26; Admin Dose 1 MG; Start 03/08/17 at 13:00 Ondansetron HCl (Zofran Inj) 4 mg Q6H PRN IV NAUSEA AND/OR VOMITING; Start 03/08 at 13:00 Bisacodyl (Dulcolax Supp) 10 mg Q12H PRN [place] CONSTIPATION; Start 03/08/17 at 13: 00 Magnesium Hydroxide (Milk Of Mag) 30 ml BID PRN PO CONSTIPATION; Start 03/08/17 at 13:00 Sodium Biphosphate/ Sodium Phosphate (Fleet Enema) 133 ml DAILY PRN [place] CONSTIPATION; Start 03/08/17 at 13:00 Docusate Sodium (Colace) 100 mg BID PO Last administered on 03/10/17 08:35; Admin Dose 100 MG; Start 03/08/17 at 21:00 Diphenhydramine HCl (Benadryl) 25 mg Q6H PRN PO PRURITUS; Start 03/08/17 at 13: 00 Aspirin (Ecotrin) 325 mg BID PO Last administered on 03/10/17 08:35; Admin Dose 325 MG; Start 03/09/17 at 09:00 Pantoprazole (Protonix Tab) 40 mg BID@06,18 PO Last administered on 03/10/17 06 :46; Admin Dose 40 MG; Start 03/08/17 at 18:00 Atorvastatin Calcium (Lipitor) 10 mg DAILY@21 PO Last administered on 03/09/17 21:42; Admin Dose 10 MG; Start 03/08/17 at 21:00 RICK URBINA MD Mar 10, 2017 13:09
--- NOTE | 2017-03-10 14:04 | PN ---
Date/Time of Note Date/Time of Note DATE: 03/10/17 TIME: 14:02 Assessment/Plan Lines/Catheters IV Catheter Type (from Nrsg): Saline Lock Dior in Place (from Nrsg): Yes Assessment/Plan Assessment/Plan POD #2, s/p left anterior NANU -pain meds as needed -ASA/SCDs for DVT prophylaxis -OOB with PT -check AM labs -dressing changed -will plan to transfer to [facility] tomorrow Subjective 24 Hr Interval Summary No acute overnight events. Having mild pain. Making satisfactory progress with PT. VSS, afebrile. Will plan to transfer to [facility] tomorrow. Exam/Review of Systems Vital Signs Vitals Vital Signs Date Time Temp Pulse Resp B/P Pulse Ox O2 Delivery O2 Flow Rate FiO2 03/10/17 08:23 97.9 76 18 142/66 93 03/09/17 01:08 Nasal Cannula 2.0 Intake and Output 03/09/17 03/09/17 03/10/17 15:00 23:00 07:00 Intake Total 600 ml 1930 ml 850 ml Output Total 1280 ml 1900 ml Balance 600 ml 650 ml -1050 ml Exam Free Text/Dictation Dressing dry Incision clean, dry, and intact without redness or drainage 5/5 Quadriceps, Tibialis Anterior, EHL, Gastroc, Soleus, Peroneals Normal sensation Palpable DT/PT, CR <2 sec No distal edema Results Result Diagram: 03/10/17 0435 03/10/17 0435 OVIDIO FUENTES PA-C Mar 10, 2017 14:03
--- NOTE | 2017-03-10 16:53 | PDOCDIS ---
Discharge Instructions DIAGNOSIS Discharge Diagnosis: s/p left anterior NAUN CONDITION Patient Condition: Good HOME CARE INSTRUCTIONS: Diet Instructions: RegularSpecial Diet: REGULAR ACTIVITY: Activity Restrictions: Slowly Increase Activity Rest between Activity Avoid heavy lifting Do not operate Machinery Do not operate Power Tool Avoid Heavy Housework Keep Limb Elevated Weight Bearing Bathing Restrictions: Shower FOLLOW UP/APPOINTMENTS Appointments follow up in the office on 03/18/17 OTHER ORDERS: Other Orders: S/P Anterior NAUN Physical Therapy: Three times per week at home x 2 weeks Daily in Rehab/SNF WB STATUS: WBAT Strengthening exercises for both upper and un-operated lower extremities. 1. Gait training with front wheeled walker 2. Wide base gait, no pivot turns. 3. Abductor strengthening. 4. Quadriceps and hamstring strengthening. 5. May switch to cane in contra lateral hand 6 weeks after surgery. 6. Physical Therapy can open case if nursing is not available. 7. Ice Packs while at rest to surgical wound for 20 minutes, 3 times/day. 8. Patient requires mobile SCDs to reduce risk of developing DVT following NAUN. Patient will use the mobile SCDs for 30 days postoperatively. Hip Precautions: No posterior hip precautions. Bathing assistance by home health aide twice weekly if Medicare patient. Occupational Therapy: Evaluation for assistive devices and ADL training. Wound Care: Keep incision dry & covered with Tegaderm until first visit with Dr. Pederson Anticoagulation Orders: Enteric Coated Aspirin 325 mg po bid x 6 weeks from date of surgery Follow-up:Call for an appointment with Dr. Pederson in 1 week after discharged from hospital at DME Orders: ASHLEY, 3-in-1 Commode, Mobile SCDs OVIDIO FUENTES PA-C Mar 10, 2017 16:53
[2017-03-10 20:19] VITALS: BP 132/61; RESP 22
[2017-03-10] MEDS: ATORVASTATIN 10 MG TAB PO SCH (21:00)
[2017-03-11] MEDS: traMADol 50 MG TAB PO SCH ×2 (00:43→06:00)
[2017-03-11] MEDS: LACTATED RINGER'S 1,000 ML IV SCH ×2 (04:50→04:55)
[2017-03-11 05:48] LABS: HEMATOCRIT 35.3 % (42.0-52.0); HEMOGLOBIN 11.5 g/dl (14.0-18.0)
[2017-03-11 06:07] LABS: CALCIUM 9.3 mg/dl (8.4-10.2); CREATININE 0.71 mg/dl (0.61-1.24); POTASSIUM 4.4 mmol/L (3.5-5.1)
[2017-03-11] MEDS: PANTOPRAZOLE (EC) 40 MG TAB PO SCH (06:33)
[2017-03-11] MEDS: HYDROCODONE/APAP (5/325) TAB PO PRN (06:35)
[2017-03-11 08:41] VITALS: BP 117/58; RESP 18
--- NOTE | 2017-03-11 08:51 | PN ---
Date/Time of Note Date/Time of Note DATE: 03/11/17 TIME: 08:49 Assessment/Plan Lines/Catheters IV Catheter Type (from Nrsg): Saline Lock Dior in Place (from Nrsg): Yes Assessment/Plan Assessment/Plan Stable POD #3, s/p left anterior NAUN -pain meds as needed -ASA/SCDs -OOB with PT -dressing changed -transfer to [facility] today -follow up in the office in 1 week Subjective 24 Hr Interval Summary No acute overnight events. Denies significant pain. VSS, afebrile. Will plan to go to [facility] today. Exam/Review of Systems Vital Signs Vitals Vital Signs Date Time Temp Pulse Resp B/P Pulse Ox O2 Delivery O2 Flow Rate FiO2 03/11/17 08:41 98.0 75 18 117/58 90 03/09/17 01:08 Nasal Cannula 2.0 Intake and Output 03/10/17 03/10/17 03/11/17 15:00 23:00 07:00 Intake Total 625 ml 1600 ml 300 ml Output Total 1300 ml 950 ml Balance 625 ml 300 ml -650 ml Exam Free Text/Dictation Dressing dry Incision clean, dry, and intact without redness or drainage 5/5 Quadriceps, Tibialis Anterior, EHL, Gastroc, Soleus, Peroneals Normal sensation Palpable DT/PT, CR <2 sec No distal edema Results Result Diagram: 03/11/17 0505 03/11/17 0505 OVIDIO FUENTES PA-C Mar 11, 2017 08:51
--- NOTE | 2017-03-11 08:58 | CONS ---
Date/Time of Note Date/Time of Note DATE: 03/11/17 TIME: 08:56 Assessment/Plan Assessment/Plan Additional Assessment/Plan 1. Doing well post op left hip replacement 2. Overactive bladder by hx, will resume Myrbetriq 3. Labs rev and can be discharged Consultation Date/Type/Reason Admit Date/Time Mar 08, 2017 at 08:07 Detailed Summary Respiratory: No cough, No shortness of breath Cardiovascular: No chest pain Gastrointestinal: no complaints Genitourinary: other (urinary urgecny and frequency) Musculoskeletal: bone/joint pain (mild left hip pain) Exam/Review of Systems Vital Signs Vitals Vital Signs Date Time Temp Pulse Resp B/P Pulse Ox O2 Delivery O2 Flow Rate FiO2 03/11/17 08:41 98.0 75 18 117/58 90 03/09/17 01:08 Nasal Cannula 2.0 Intake and Output 03/10/17 03/10/17 03/11/17 15:00 23:00 07:00 Intake Total 625 ml 1600 ml 300 ml Output Total 1300 ml 950 ml Balance 625 ml 300 ml -650 ml Exam Neck: No jvd Respiratory: clear to auscultation Cardiovascular: regular rate and rhythm Gastrointestinal: soft Extremities: No edema (and no calf tend) Results Result Diagram: 03/11/17 0505 03/11/17 0505 Results 24 hrs Laboratory Tests Test 03/10/17 12:35 03/11/17 05:05 03/11/17 06:56 Urine Color LT. YELLOW Urine Clarity CLEAR Urine pH 7.0 Urine Specific [place] 1.010 Urine Ketones NEGATIVE Urine Nitrite NEGATIVE Urine Bilirubin NEGATIVE Urine Urobilinogen 0.2 E.U./dL Urine Leukocyte Esterase NEGATIVE Urine Hemoglobin NEGATIVE Urine Glucose NEGATIVE Urine Total Protein NEGATIVE Hemoglobin 11.5 L Hematocrit 35.3 L Sodium Level 138 Potassium Level 4.4 Chloride Level 99 Carbon Dioxide Level 31 Anion Gap 12 Blood Urea Nitrogen 14 Creatinine 0.71 Glucose Level 135 Calcium Level 9.3 Lab Scanned Report REFERENCE LAB Medications Medications Current Medications Lactated Ringer's (Lr) 1,000 ml @ 100 mls/hr Q10H IV Last administered on 04:10; Admin Dose 100 MLS/HR; Start 03/08/17 at 08:00 Miscellaneous Information 1 ea NOTE XX Last administered on 03/08/17 11:30; Admin Dose 1 EA; Start 03/08/17 at 08:30; Stop 03/12/17 at 08:29 Finasteride (Proscar) 5 mg DAILY PO Last administered on 03/10/17 08:35; Admin Dose 5 MG; Start 03/09/17 at 09:00 Gabapentin (Neurontin) 300 mg TID PO Last administered on 03/10/17 21:00; Admin Dose 300 MG; Start 03/08/17 at 13:00 Tamsulosin HCl 0.4 mg 0.4 mg DAILY PO Last administered on 03/10/17 08:35; Admin Dose 0.4 MG; Start 03/09/17 at 09:00 Lactated Ringer's (Lr) 1,000 ml @ 125 mls/hr Q8H IV Last administered on 06:46; Admin Dose 125 MLS/HR; Start 03/08/17 at 12:50 Tramadol HCl (Ultram) 50 mg Q6 PO Last administered on 03/11/17 00:43; Admin Dose 50 MG; Start 03/08/17 at 12:00; Stop 03/11/17 at 11:59 Acetaminophen/ Hydrocodone Bitart ([place] (5/325)) 1 tab Q4H PRN PO PAIN LEVEL 1 -3; Start 03/08/17 at 13:00 Acetaminophen/ Hydrocodone Bitart ([place] (5/325)) 2 tab Q4H PRN PO PAIN LEVEL 4 -7 Last administered on 03/11/17 06:35; Admin Dose 2 TAB; Start 03/08/17 at 13:00 Hydromorphone HCl (Dilaudid) 1 mg Q3H PRN IV PAIN LEVEL 8-10 Last administered on 03/09/17 13:26; Admin Dose 1 MG; Start 03/08/17 at 13:00 Ondansetron HCl (Zofran Inj) 4 mg Q6H PRN IV NAUSEA AND/OR VOMITING; Start 03/08 at 13:00 Bisacodyl (Dulcolax Supp) 10 mg Q12H PRN MA CONSTIPATION; Start 03/08/17 at 13: 00 Magnesium Hydroxide (Milk Of Mag) 30 ml BID PRN PO CONSTIPATION; Start 03/08/17 at 13:00 Sodium Biphosphate/ Sodium Phosphate (Fleet Enema) 133 ml DAILY PRN MA CONSTIPATION; Start 03/08/17 at 13:00 Docusate Sodium (Colace) 100 mg BID PO Last administered on 03/10/17 21:00; Admin Dose 100 MG; Start 03/08/17 at 21:00 Diphenhydramine HCl (Benadryl) 25 mg Q6H PRN PO PRURITUS; Start 03/08/17 at 13: 00 Aspirin (Ecotrin) 325 mg BID PO Last administered on 03/10/17 21:00; Admin Dose 325 MG; Start 03/09/17 at 09:00 Pantoprazole (Protonix Tab) 40 mg BID@06,18 PO Last administered on 03/11/17 06 :33; Admin Dose 40 MG; Start 03/08/17 at 18:00 Atorvastatin Calcium (Lipitor) 10 mg DAILY@21 PO Last administered on 03/10/17 21:00; Admin Dose 10 MG; Start 03/08/17 at 21:00 KEON WOLF MD Mar 11, 2017 08:58
[2017-03-11] MEDS ORDERED: PATIENT'S OWN MEDICATION PO SCH (09:00)
[2017-03-11] MEDS: FINASTERIDE 5 MG TAB PO SCH (09:15)
[2017-03-11] MEDS: DOCUSATE SODIUM 100 MG CAP PO SCH (09:16)
[2017-03-11] MEDS: ASPIRIN (EC) 325 MG TAB PO SCH (09:17)
[2017-03-11] MEDS: TAMSULOSIN (SR) 0.4 MG CAP PO SCH (09:17)
[2017-03-11] MEDS: GABAPENTIN 300 MG CAP PO SCH (09:17)
[2017-03-11 11:41] VITALS: BP 130/58; PULSE 68; RESP 16
--- NOTE | 2017-03-11 16:35 | DS ---
DATE OF ADMISSION: 03/08/2017 DATE OF DISCHARGE: 03/11/2017 CONDITION ON DISCHARGE: Stable. ADMITTING DIAGNOSIS: Left hip osteoarthritis. DISCHARGE DIAGNOSIS: Status post left anterior total hip arthroplasty. PROCEDURE PERFORMED: Left anterior total hip arthroplasty. HOSPITAL COURSE: This is an 86-year-old male who was seen in the clinic initially complaining of left hip pain. X-rays demonstrated advanced osteoarthritis of the left hip and it was thought he would benefit from a left anterior total hip arthroplasty. On 03/08/2017, the patient was admitted and taken to the operating room where he underwent a left anterior total hip arthroplasty. There were no intraoperative complications. The patient tolerated the procedure well. He was taken to the recovery room in stable condition. Pain was well controlled with oral pain medication. He was started on aspirin and SCDs for DVT prophylaxis. He remained hemodynamically stable and neurovascularly intact throughout his hospital stay. He began physical therapy on postoperative day 1 and continued to make satisfactory progress. Ultimately on postoperative day 3, he was deemed stable for transfer from [facility]. Prior to transfer, the incision was inspected and noted to be clean, dry and intact. Dressing changes were done prior to patient going to [facility]. LABORATORY ANALYSIS: Hemoglobin of 11.5, hematocrit 35.3. Chemistry panel was within normal limits. DISCHARGE MEDICATIONS: 1. [place] 5/325 mg. 2. Tramadol 50 mg. 3. Aspirin 325 mg. 4. Protonix 40 mg. 5. Additionally, the patient is to resume all of his normal home medications. DISCHARGE INSTRUCTIONS: The patient will be transferred to [facility] in stable condition. He is to resume a normal diet. Activity includes weightbearing as tolerated on the surgical lower extremity. He will continue physical therapy at [facility]. Additionally, he will be transferred on the medications noted above, and to resume all of his normal home medications. The patient is to call the office or go to the emergency room for any concerns including increased redness, swelling, drainage, fever or any concern regarding the operation or site of incision. Patient is to follow up in the office on 03/17/2017. Dictated By: OVIDIO PLASENCIA/SHANNAN Conf#: [id number] DID#: [id number] [facility]ALTH[facility]hask[facility]
== END 2017-03-11 12:46 | DRG 470 ==
LOC: REC 08:07 → MS1 21:15
PROVIDERS: ADMIT Orthopaedic Surgery; ATTEND Orthopaedic Surgery
PROC: 0SRB04A Replacement of Left Hip Joint with Ceramic on Polyethylene Synthetic Substitute, Uncemented, Open Approach (ICD-10-PCS; principal; 2017-03-08 10:00)
DX: M16.12 Unilateral primary osteoarthritis, left hip (principal); I10 Essential (primary) hypertension; E78.5 Hyperlipidemia, unspecified; K21.9 Gastro-esophageal reflux disease without esophagitis; N40.1 Benign prostatic hyperplasia with lower urinary tract symptoms; R35.0 Frequency of micturition
CPT/HCPCS: 72170; 73530; 80048; 81003; 85014; 85018; 86850; 86900; 86901; 86920; 87081; 87086; 88304; 88311; 97110; 97116; 97162; 97167; 97530; C1776; C9290; J0171; J0690; J0697; J0735; J1100; J1170; J1644; J1885; J2274; J2405; J2765; J3010; J3370; J7120

== ENCOUNTER → 2017-03-18 | Outpatient (CLI) | payer MEDICARE, MEDICAID ==
[~2017-03-18] MED LIST changes: +ASPI-664 PO; -ASPI325T32 PO; +BACL10TA PO; -BUPIVACAINE LIPOSOME/PF 266 MG/20 ML VIAL INFIL ONE; -CEFAZOLIN 2GM/50 ML (PMX) 50 ML X1 BEFORE INCISION IVPB ONE; -CELECOXIB 400 MG PO X1 DOSE PO ONE; -EPHEDrine SULFATE 50 MG/5 ML SYG ONE; -LOVA20TA PO; +LOVA40TA64 PO; -PAIN COCKTAIL-CEFUROXIME IRR ONE; -PREGABALIN 300 MG PO X1 PO ONE; -TRAM50TA2 PO; -TRANEXAMIC ACID 860 MG in SOD CHLORIDE 0.9% 100 ML IVPB ONE; -TRANEXAMIC ACID 860 MG in SOD CHLORIDE 0.9% 91.4 ML IV ONE; -oxyCODONE (CR) 10 MG TAB [oxyCONTIN] X1 DOSE PO ONE; -traMADOL 50 MG TAB X 1 DOSE PO ONE
--- NOTE | 2017-03-18 12:26 | HKNOTE ---
DATE OF SERVICE: 03/18/2017 INTERVAL HISTORY: The patient presents today for his first postoperative evaluation. He is 10 days status post left anterior total hip arthroplasty. He is doing well overall. He is at [facility]. He is progressing with therapy there he states. He denies any fevers or chil ls. He presents today for his first postoperative evaluation. PHYSICAL EXAMINATION: On exam today, he is alert and oriented x4 and in no acute distress. He is a mbulating with a front-wheel walker. His incision is clean, dry and intact. Vick are in place. There is no erythema, warmth pus or drainage noted. He is able to internally and externally rotate his hip passively with no pain. Homans sign is negative. Compartments are soft. He is neurovascu larly intact distally. IMAGING: X-rays of the left hip were obtained at an outside facility and are reviewed by me. They demonstrate good anatomic alignment with no fractures or dislocations identified. ASSESSMENT: Ten days status post left anterior total hip arthroplasty. PLAN: The vick were removed today and Steri-Strips were applied. He is to continue ambulating w ith a front-wheel walker and transition to a cane as indicated by physical therapy. He is to contin ue doing physical therapy at [facility] and prepare for discharge home. Addit ionally, he is to continue taking aspirin twice a day for DVT prophylaxis. We will see him back in 4 weeks for repeat evaluation. Dictated By: OVIDIO PATRICIO for BELLA PLASENCIA/SHANNAN Conf#: [id number] DID#: [id number]
== END | disposition home or self-care (01) ==
LOC: HKI 10:53
PROVIDERS: ATTEND Orthopaedic Surgery
DX: Z47.1 Aftercare following joint replacement surgery (principal); Z96.642 Presence of left artificial hip joint

== ENCOUNTER → 2017-05-18 | Outpatient (CLI) | payer MEDICARE, OTHER ==
--- NOTE | 2017-05-19 10:01 | RADRPT ---
PROCEDURE: Pelvis and left hip. CLINICAL INDICATION: Pain. TECHNIQUE: 2 views of the pelvis and left hip were obtained. COMPARISON: 03/08/2017. FINDINGS: The patient is status post bilateral total hip arthroplasties which appear radiographically intact. There is no acute fracture or dislocation. Bilateral sacroiliac joints are within normal limits. Bone mineralization is decreased. IMPRESSION: No evidence of acute fracture. Status post bilateral total hip arthroplasties. Osteopenia. .Evangelista Rowell MD, MD Date Time Electronically viewed and signed by .Evangelista Rowell MD, MD on 05/19/2017 00:27 .T/
== END | disposition home or self-care (01) ==
LOC: HKI 04-22 10:51
PROVIDERS: ATTEND Orthopaedic Surgery
DX: Z47.1 Aftercare following joint replacement surgery (principal); M16.12 Unilateral primary osteoarthritis, left hip; Z96.642 Presence of left artificial hip joint
CPT/HCPCS: 73502